=== PATIENT | male | born 1955 | race Caucasian/White ===

== ENCOUNTER 2017-04-08 17:37 | Inpatient (IN) | payer BC ==
[2017-04-08 18:10] LABS: CREATININE 1.13 mg/dL (0.70-1.30)
[2017-04-08] MEDS ORDERED: NS 100 ML IV 100 ML IV ONE (18:23)
--- NOTE | 2017-04-08 19:17 | CT ---
CT abdomen and pelvis with contrast Indication: Left lower quadrant pain. Possible abscess Technique: Helical images through the abdomen and pelvis after IV and oral contrast. Coronal and sag ittal reformats provided. Comparison: None currently available. Findings: Limited images through lower chest shows no acute abnormality. Review of bone windows show s no destructive osseous lesion. Abdomen: The liver, gallbladder, spleen, adrenal glands, pancreas, stomach and small bowel are gloria l without obstruction to the flow of contrast. The appendix is normal. Minimal vascular plaque seen. Kidneys are normal without hydroureteronephrosis. There is diffuse descending colon and sigmoid colon diverticula, with wall thickening and stranding around the distal descending colon on axial image 64 through 71. Focally inflamed diverticula suspec deniz on axial image 68. No free air or pneumatosis seen. Pelvis: Urinary bladder, rectum and prostate gland are normal. Impression: 1. Acute distal descending/proximal sigmoid diverticulitis without free air or drainable fluid colle ction. 2. Vascular calcifications and other incidental findings as above. Reported By:
[2017-04-08] MEDS ORDERED: MORPHINE SULFATE INJ 2 MG IVP PRN (20:12)
[2017-04-08] MEDS ORDERED: ZOFRAN INJ 4 MG VIAL IVP PRN (20:24)
[2017-04-08 20:58] VITALS: BMI 34.5
[2017-04-08] MEDS ORDERED: MORPHINE SULFATE INJ 2 MG IVP ONE (20:59)
[2017-04-08 21:11] LABS: BASOPHILS # (AUTO) 0.1 X10^3/uL (0.0-0.1); BASOPHILS % (AUTO) 1.5 % (0.2-1.0); EOSINOPHILS # (AUTO) 0.1 x10^3/uL (0.0-0.2); EOSINOPHILS % (AUTO) 0.8 % (0.9-2.9); HEMATOCRIT 47.5 % (42.0-54.0); HEMOGLOBIN 16.4 g/dL (13.5-18.0); LYMPHOCYTES # (AUTO) 1.9 X10^3/uL (1.3-2.9); LYMPHOCYTES % (AUTO) 21.5 % (21.0-51.0); MEAN CORPUSCULAR HEMOGLOBIN 29.7 pg (27.0-34.0); MEAN CORPUSCULAR HGB CONC 34.6 g/dL (33.0-35.0); MEAN CORPUSCULAR VOLUME 85.9 fL (80.0-100.0); MEAN PLATELET VOLUME 9.1 fL (7.4-11.0); MONOCYTES # (AUTO) 0.6 x10^3/uL (0.3-0.8); MONOCYTES % (AUTO) 6.5 % (0.0-13.0); NEUTROPHILS # (AUTO) 6.3 x10^3/uL (2.2-4.8); NEUTROPHILS % (AUTO) 69.7 % (42.0-75.0); PLATELET COUNT 165 X10^3/uL (150.0-450.0); RED BLOOD COUNT 5.53 X10^6/uL (4.7-6.0); RED CELL DISTRIBUTION WIDTH 13.6 % (11.6-16.5)
[2017-04-08] MEDS: PROTONIX INJ 40 MG VIAL IVP SCH (21:18)
[2017-04-08] MEDS: CIPRO IV 400 MG PREMIX* 400 MG/200 ML IV.SOLN. IV SCH (21:19)
[2017-04-08] MEDS: FLAGYL IV PREMIX 500 MG BAG 500 MG/100 ML BAG IV SCH (21:19)
[2017-04-08] MEDS: NS 1000 ML 1,000 ML IV PRN (21:19)
[2017-04-08 21:23] LABS: ALANINE AMINOTRANSFERASE 27 Units/L (12-78); ALBUMIN 3.7 g/dL (3.4-5.0); ALKALINE PHOSPHATASE 72 Units/L (46-116); ASPARTATE AMINO TRANSFERASE 14 Units/L (15-37); BLOOD UREA NITROGEN 15 mg/dL (7-18); CALCIUM 9.1 mg/dL (8.5-10.1); CARBON DIOXIDE 30.6 mmol/L (21-32); CHLORIDE 104 mmol/L (98-107); COR NA(FOR HYPERGLY) 141 mmol/L (136-145); GLUCOSE 119 mg/dL (65-99); SODIUM 141 mmol/L (136-145); TOTAL PROTEIN 7.4 g/dL (6.4-8.2); eGFR BLACK RACES > 60 (>60); eGFR NON BLACK RACES > 60 (>60)
[2017-04-08 22:34] LABS: BILIRUBIN,URINE NEGATIVE (NEGATIVE); BLOOD/HEMOGLOBIN,URINE NEGATIVE (NEGATIVE); GLUCOSE, URINE NEGATIVE (NEGATIVE); KETONES,URINE NEGATIVE (NEGATIVE); LEUKOCYTE ESTERASE ,URINE NEGATIVE (NEGATIVE); NITRITES,URINE NEGATIVE (NEGATIVE); PROTEIN,URINE NEGATIVE (NEGATIVE); UROBILINOGEN,URINE NORMAL (NORMAL)
[2017-04-08 22:41] LABS: APPEARANCE,URINE CLEAR (CLEAR); BACTERIA,URINE NEGATIVE /HPF (NEGATIVE); COLOR,URINE YELLOW (YELLOW); RBC,URINE NONE SEEN /HPF (NEGATIVE); SQUAMOUS EPITHELIAL CELL,UR RARE /HPF (NEGATIVE)
[2017-04-09] MEDS: AMBIEN PO PRN ×2 (00:35→22:12)
[2017-04-09 05:02] LABS: BASOPHILS # (AUTO) 0.1 X10^3/uL (0.0-0.1); BASOPHILS % (AUTO) 0.7 % (0.2-1.0); EOSINOPHILS # (AUTO) 0.1 x10^3/uL (0.0-0.2); EOSINOPHILS % (AUTO) 1.5 % (0.9-2.9); HEMATOCRIT 46.3 % (42.0-54.0); HEMOGLOBIN 15.8 g/dL (13.5-18.0); LYMPHOCYTES % (AUTO) 28.6 % (21.0-51.0); MEAN CORPUSCULAR HEMOGLOBIN 29.6 pg (27.0-34.0); MEAN CORPUSCULAR HGB CONC 34.2 g/dL (33.0-35.0); MEAN CORPUSCULAR VOLUME 86.6 fL (80.0-100.0); MEAN PLATELET VOLUME 9.7 fL (7.4-11.0); MONOCYTES # (AUTO) 0.5 x10^3/uL (0.3-0.8); MONOCYTES % (AUTO) 7.7 % (0.0-13.0); NEUTROPHILS # (AUTO) 4.3 x10^3/uL (2.2-4.8); NEUTROPHILS % (AUTO) 61.5 % (42.0-75.0); PLATELET COUNT 155 X10^3/uL (150.0-450.0); RED BLOOD COUNT 5.35 X10^6/uL (4.7-6.0); RED CELL DISTRIBUTION WIDTH 13.5 % (11.6-16.5)
[2017-04-09 05:18] LABS: ALANINE AMINOTRANSFERASE 24 Units/L (12-78); ALBUMIN 3.4 g/dL (3.4-5.0); ALKALINE PHOSPHATASE 59 Units/L (46-116); ASPARTATE AMINO TRANSFERASE 15 Units/L (15-37); BLOOD UREA NITROGEN 12 mg/dL (7-18); CALCIUM 8.3 mg/dL (8.5-10.1); CARBON DIOXIDE 27.8 mmol/L (21-32); CHLORIDE 107 mmol/L (98-107); COR NA(FOR HYPERGLY) 143 mmol/L (136-145); GLUCOSE 118 mg/dL (65-99); SODIUM 143 mmol/L (136-145); eGFR BLACK RACES > 60 (>60); eGFR NON BLACK RACES > 60 (>60)
[2017-04-09] MEDS: NS 1000 ML 1,000 ML IV PRN ×2 (05:24→22:13)
[2017-04-09] MEDS: FLAGYL IV PREMIX 500 MG BAG 500 MG/100 ML BAG IV SCH ×3 (05:24→22:13)
[2017-04-09] MEDS: PROTONIX INJ 40 MG VIAL IVP SCH (08:37)
[2017-04-09] MEDS: CIPRO IV 400 MG PREMIX* 400 MG/200 ML IV.SOLN. IV SCH ×2 (08:38→20:59)
[2017-04-09] MEDS ORDERED: PATIENT'S HOME MEDICATION (Rosuvastatin Calcium [Rosuvastatin Calcium] 20 MG) PO SCH (09:45)
[2017-04-09] MEDS ORDERED: GLUCOPHAGE PO SCH (10:00)
[2017-04-09] MEDS: MIRALAX POWDER (1 DOSE 17GM) PO SCH (10:49)
[2017-04-09] MEDS: ASPIRIN PO SCH (10:49)
--- NOTE | 2017-04-09 11:02 | DR.H&P ---
H&P - History & Physical for Day of: H&P Date: 04/08/17 - Chief Complaint Chief Complaint: Abdominal Pain - Allergies Allergies/Adverse Reactions: Allergies Allergy/AdvReac Type Severity Reaction Status Date / Time MS No Known Drug Allergy Allergy Verified 04/08/17 20:11 - History of Present Illness History of Present Illness: Patient is a 62yo male who presented to the hospital as a direct admit with severe abdominal pain, nausea. Patient had an outpatient CT of abdomen and pelvis that showed acute distal descending/ Proximal sigmoid diverticulitis without free air or drainable fluid. Vascular calcifications. Patient admitted with diagnosis of acute diverticulitis. Started on NS@75, Cipro 400mg IV Q12hr, Flagyl 500mg IV Q8hr, Morphine 2mg IV Q4hr PRN, Zofran 4mg Iv Q6hr PRN and ambien 5mg at bedtime PRN. On arrival vital signs 98.4, 90, 20, 99%, 162/64. Physical exam reveals diffuse abdominal tenderness. Labs on arrival are within normal limits with the exception of Eos% 0.8, Baso% 1.5, Neut# 6.3, glucose 119, AST 14, Albumin/Globulin Ratio 1.0. Patient has a history of Coronary artery disease, hyperlipidemia, constipation, GERD, Asthma, Diabetes Mellitus type 2, and Arthritis. We will continue to hydrate patient and given IV antibiotics as well as pain medication to help. - Past Medical History Past Medical History: Arthritis, Asthma, Coronary Artery Disease, Diabetes, Dyslipidemia, GERD - Past Surgical History Surgical History: Carotid Endarterectomy - Family History Family Medical History: Coronary Artery Disease, Hypertension - Social History Does patient currently use any type of tobacco product: No Have you used tobacco products in the last 12 months: No Type of Tobacco Use: None Alcohol Use: None Drug Use: None - Medications Home Medications: Aspirin [ASPIRIN 325 MG *] 325 mg PO DAILY 04/08/17 [History Confirmed 04/08/17] Metformin HCl [Metformin HCl] 500 mg PO DAILY 04/08/17 [History Confirmed ] Pantoprazole Sodium [Protonix] 40 mg PO DAILY 04/08/17 [History Confirmed ] Polyethylene Glycol Pwd Ud [MIRALAX POWDER (17 GM DOSE) *] 17 gm PO DAILY [History Confirmed 04/08/17] Rosuvastatin Calcium [Rosuvastatin Calcium] 20 mg PO DAILY 04/08/17 [History Confirmed 04/08/17] Coenzyme Q10 (Ubidecarenone) [Co Q-10] 200 mg PO DAILY 04/09/17 [History Confirmed 04/09/17] Multiple Vitamins W/ Minerals [Centrum Silver] 1 tab PO DAILY 04/09/17 [History Confirmed 04/09/17] Whitman-3 Fatty Acids [Fish Oil 1200 mg] 1 cap PO DAILY 04/09/17 [History Confirmed 04/09/17] - Review of Systems Constitutional: No Symptoms Reported Eyes: No Symptoms Reported ENT: No Symptoms Reported Respiratory: No Symptoms Reported Cardiovascular: No Symptoms Reported Gastrointestinal: Nausea, Abdominal Pain Genitourinary: No Symptoms Reported Musculoskeletal: No Symptoms Reported Skin: No Symptoms Reported Neurological: No Symptoms Reported - Physical Exam Vital Signs: 98.4, 90, 20, 99%, 162/64 Oriented: Normal Eyes: Normal Ear: Normal Nose: Normal Throat: Normal Respiratory: Clear Throughout Cardiovascular: Normal : Normal Auscultation: Bowel Sounds: Normal Palpation: Normal Tenderness: Diffuse Skin: Normal Musculoskeletal: Normal Psychiatric: Normal Mood Description: Calm, Appropriate Affect: Normal Speech Pattern: Clear, Appropriate - Assessment/Plan (1) Diverticulitis Qualifiers: Diverticulitis site: D Diverticulitis bleeding: D Diverticulitis complication: D Status: Acute Plan: Cipro 400mg IV Q12hr, Flagyl 500mg IV Q8hr (2) Abdominal pain Qualifiers: Abdominal location: A Status: Acute Plan: Morphine 2mg IV Q4hr PRN (3) Nausea Status: Acute Plan: Zofran 4mg Iv Q6hr PRN
--- NOTE | 2017-04-09 11:12 | PCM.PROG ---
Progress Note - Progress Note for Day of Date: 04/09/17 - Subjective Subjective: Patient is a 62yo male who was admitted with diverticulitis. He states he is feeling better this am but is still having some abdominal pain. We are going to keep him another day so he can continue to receive IV Antibiotics and Fluids and morphine for pain control. Physical exam reveals abdominal distention and diffuse abdominal tenderness. Vital signs this am 97.5, 71, 19, 96%, 130/61. Labs are within normal limits with the exception of glucose 118, Calcium 8.3, and albumin/globulin ratio of 0.9. We will follow up with patient in the am with repeat labs. We are going to resumed his home medications including Multivitamin daily, fish oil 1200mg daily, coenzyme Q10 200mg daily, rosuvastatin 20mg daily, metformin 500mg daily and aspirin 325mg daily. We will hold his protonix as he is receiving it IV. - Past Medical Family Social History Past Med/Fam/Surg Hx: No changes since H&P Allergies: Allergies MS No Known Drug Allergy Allergy (Verified 04/08/17 20:11) - Review of Systems ROS: No change since H&P - Vital Signs and I&O's Vital Signs: 97.5, 71, 19, 96%, 130/61 Intake and Output: Intake & Output 04/06/17 04/07/17 04/08/17 04/09/17 11:59 11:59 11:59 11:59 Intake Total 826 Output Total 250 Balance 576 - Physical Exam Oriented: Normal Eyes: Normal Ear: Normal Nose: Normal Throat: Normal Respiratory: Normal Cardiovascular: Normal : Normal Auscultation: Bowel Sounds: Normal Palpation: Normal Tenderness: Diffuse Skin: Normal Musculoskeletal: Normal Psychiatric: Normal Mood Description: Calm, Appropriate Affect: Normal Speech Pattern: Clear, Appropriate - Laboratory and Diagnostics Result Diagrams: 04/09/17 03:50 04/09/17 03:50 Labs: Laboratory WBC 7.0 X10^3/uL (3.6-10.0) 04/09/17 03:50 RBC 5.35 X10^6/uL (4.7-6.0) 04/09/17 03:50 Hgb 15.8 g/dL (13.5-18.0) 04/09/17 03:50 Hct 46.3 % (42.0-54.0) 04/09/17 03:50 MCV 86.6 fL (80.0-100.0) 04/09/17 03:50 MCH 29.6 pg (27.0-34.0) 04/09/17 03:50 MCHC 34.2 g/dL (33.0-35.0) 04/09/17 03:50 RDW 13.5 % (11.6-16.5) 04/09/17 03:50 Plt Count 155 X10^3/uL (150.0-450.0) 04/09/17 03:50 MPV 9.7 fL (7.4-11.0) 04/09/17 03:50 Neut % 61.5 % (42.0-75.0) 04/09/17 03:50 Lymph % 28.6 % (21.0-51.0) 04/09/17 03:50 Mcdowell % 7.7 % (0.0-13.0) 04/09/17 03:50 Eos % 1.5 % (0.9-2.9) 04/09/17 03:50 Baso % 0.7 % (0.2-1.0) 04/09/17 03:50 Neut # 4.3 x10^3/uL (2.2-4.8) 04/09/17 03:50 Lymph # 2.0 X10^3/uL (1.3-2.9) 04/09/17 03:50 Mcdowell # 0.5 x10^3/uL (0.3-0.8) 04/09/17 03:50 Eos # 0.1 x10^3/uL (0.0-0.2) 04/09/17 03:50 Baso # 0.1 X10^3/uL (0.0-0.1) 04/09/17 03:50 Absolute Nucleated RBC 0.1 /100WBC 04/09/17 03:50 Sodium 143 mmol/L (136-145) 04/09/17 03:50 Corrected Sodium 143 mmol/L (136-145) 04/09/17 03:50 Potassium 3.5 mmol/L (3.5-5.1) 04/09/17 03:50 Chloride 107 mmol/L (98-107) 04/09/17 03:50 Carbon Dioxide 27.8 mmol/L (21-32) 04/09/17 03:50 BUN 12 mg/dL (7-18) 04/09/17 03:50 Creatinine 1.00 mg/dL (0.70-1.30) 04/09/17 03:50 Est GFR (MDRD) Af Amer > 60 (>60) 04/09/17 03:50 Est GFR (MDRD) Non-Af > 60 (>60) 04/09/17 03:50 Glucose 118 mg/dL (65-99) H 04/09/17 03:50 Calcium 8.3 mg/dL (8.5-10.1) L 04/09/17 03:50 Corrected Calcium TNP 04/09/17 03:50 Total Bilirubin 0.90 mg/dL (0.2-1.0) 04/09/17 03:50 AST 15 Units/L (15-37) 04/09/17 03:50 ALT 24 Units/L (12-78) 04/09/17 03:50 Alkaline Phosphatase 59 Units/L (46-116) 04/09/17 03:50 Total Protein 7.0 g/dL (6.4-8.2) 04/09/17 03:50 Albumin 3.4 g/dL (3.4-5.0) 04/09/17 03:50 Globulin 3.6 g/dL (2.5-4.5) 04/09/17 03:50 Albumin/Globulin Ratio 0.9 Ratio (1.1-2.1) L 04/09/17 03:50 Specimen Type Clean catch urine 04/08/17 22:28 Urine Color Yellow (YELLOW) 04/08/17 22:28 Urine Appearance Clear (CLEAR) 04/08/17 22:28 Urine pH 6.0 (5.0 - 8.0) 04/08/17 22:28 Ur Specific Decker 1.010 (1.000-1.030) 04/08/17 22:28 Urine Protein Negative (NEGATIVE) 04/08/17 22:28 Urine Glucose (UA) Negative (NEGATIVE) 04/08/17 22:28 Urine Ketones Negative (NEGATIVE) 04/08/17 22:28 Urine Occult Blood Negative (NEGATIVE) 04/08/17 22:28 Urine Nitrite Negative (NEGATIVE) 04/08/17 22:28 Urine Bilirubin Negative (NEGATIVE) 04/08/17 22:28 Urine Urobilinogen Normal (NORMAL) 04/08/17 22:28 Ur Leukocyte Esterase Negative (NEGATIVE) 04/08/17 22:28 Urine RBC None seen /HPF (NEGATIVE) 04/08/17 22:28 Urine WBC None seen /HPF (NEGATIVE) 04/08/17 22:28 Ur Squamous Epith Cells Rare /HPF (NEGATIVE) 04/08/17 22:28 Urine Bacteria Negative /HPF (NEGATIVE) 04/08/17 22:28 Ur Culture Indicated? No/not indicated 04/08/17 22:28 - Plan (1) Diverticulitis Status: Acute Qualifiers: Diverticulitis site: D Diverticulitis bleeding: D Diverticulitis complication: D Plan: Cipro 400mg IV Q12hr, Flagyl 500mg IV Q8hr (2) Abdominal pain Status: Acute Qualifiers: Abdominal location: A Plan: Morphine 2mg IV Q4hr PRN, Protonix 40mg IV DAIly (3) Nausea Status: Acute Plan: Zofran 4mg Iv Q6hr PRN (4) Hyperlipidemia Status: Acute Qualifiers: Hyperlipidemia type: H Plan: continue rosuvastatin 20mg daily (5) Diabetes mellitus, type 2 Status: Acute Qualifiers: Diabetes mellitus complication status: D Diabetes mellitus complication detail: D Diabetic retinopathy severity: D Proliferative retinopathy type: P Diabetes mellitus macular edema: D Diabetes mellitus ferry terminal agent insulin use : D Laterality: L Chronic kidney disease stage: C Plan: continue metformin 500mg daily
[2017-04-09] MEDS ORDERED: OMEGA PO SCH (11:15)
[2017-04-09] MEDS ORDERED: COENZYME Q10 200 MG PO SCH (11:15)
[2017-04-09] MEDS ORDERED: FATTY ACIDS PO SCH (11:15)
[2017-04-09] MEDS ORDERED: PATIENT'S HOME MEDICATION (Multiple Vitamins W/ Minerals [Centrum Silver] 1 TAB) PO SCH (11:15)
[2017-04-09] MEDS ORDERED: CRESTOR TAB 10 MG PO SCH (21:00)
[2017-04-10] MEDS: FLAGYL IV PREMIX 500 MG BAG 500 MG/100 ML BAG IV SCH (05:27)
[2017-04-10 05:35] LABS: EOSINOPHILS # (AUTO) 0.1 x10^3/uL (0.0-0.2); EOSINOPHILS % (AUTO) 1.8 % (0.9-2.9); HEMATOCRIT 44.7 % (42.0-54.0); HEMOGLOBIN 15.6 g/dL (13.5-18.0); LYMPHOCYTES # (AUTO) 1.6 X10^3/uL (1.3-2.9); LYMPHOCYTES % (AUTO) 31.6 % (21.0-51.0); MEAN CORPUSCULAR HEMOGLOBIN 30.2 pg (27.0-34.0); MEAN CORPUSCULAR HGB CONC 34.9 g/dL (33.0-35.0); MEAN CORPUSCULAR VOLUME 86.7 fL (80.0-100.0); MEAN PLATELET VOLUME 9.4 fL (7.4-11.0); MONOCYTES # (AUTO) 0.4 x10^3/uL (0.3-0.8); MONOCYTES % (AUTO) 7.5 % (0.0-13.0); NEUTROPHILS # (AUTO) 2.9 x10^3/uL (2.2-4.8); NEUTROPHILS % (AUTO) 58.1 % (42.0-75.0); PLATELET COUNT 147 X10^3/uL (150.0-450.0); RED BLOOD COUNT 5.16 X10^6/uL (4.7-6.0); RED CELL DISTRIBUTION WIDTH 13.3 % (11.6-16.5)
[2017-04-10 05:46] LABS: ALANINE AMINOTRANSFERASE 24 Units/L (12-78); ALBUMIN 3.1 g/dL (3.4-5.0); ALKALINE PHOSPHATASE 49 Units/L (46-116); ASPARTATE AMINO TRANSFERASE 16 Units/L (15-37); BLOOD UREA NITROGEN 8 mg/dL (7-18); CALCIUM 8.2 mg/dL (8.5-10.1); CARBON DIOXIDE 25.8 mmol/L (21-32); CHLORIDE 110 mmol/L (98-107); COR CA(FOR HYPOALB) 8.9 mg/dL (8.5-10.1); COR NA(FOR HYPERGLY) 144 mmol/L (136-145); CREATININE 0.89 mg/dL (0.70-1.30); GLUCOSE 115 mg/dL (65-99); SODIUM 144 mmol/L (136-145); TOTAL PROTEIN 6.5 g/dL (6.4-8.2); eGFR BLACK RACES > 60 (>60); eGFR NON BLACK RACES > 60 (>60)
[2017-04-10] MEDS ORDERED: TAB-A-VITE PO SCH (09:00)
[2017-04-10] MEDS ORDERED: LOVAZA PO SCH (09:00)
[2017-04-10 09:24] VITALS: BP 163/77
[2017-04-10] MEDS: PROTONIX INJ 40 MG VIAL IVP SCH (09:24)
[2017-04-10] MEDS: CIPRO IV 400 MG PREMIX* 400 MG/200 ML IV.SOLN. IV SCH (09:24)
[2017-04-10] MEDS: ASPIRIN PO SCH (09:24)
[2017-04-10] MEDS: MIRALAX POWDER (1 DOSE 17GM) PO SCH (09:24)
--- NOTE | 2017-04-10 11:11 | DR.CARTERD ---
- Discharge Summary for: Discharge Summary for Date of:: 04/10/17 - Admission Date Date of Admission: 04/08/17 - Admission Diagnoses Admission Diagnosis: acute diverticulitis. Coronary artery disease. hyperlipidemia. constipation. GERD. Diabetes Mellitus type 2 - Discharge Date Discharge Date: 04/10/17 - Discharge Diagnoses Discharge Diagnosis: acute diverticulitis Coronary artery disease hyperlipidemia constipation GERD Diabetes Mellitus type 2 - Hospital Course Hospital Course: Patient is a 62yo male who presented to the hospital as a direct admit with severe abdominal pain, nausea. Patient had an outpatient CT of abdomen and pelvis that showed acute distal descending/Proximal sigmoid diverticulitis without free air or drainable fluid. Vascular calcifications. Patient admitted with diagnosis of acute diverticulitis. Started on NS@75, Cipro 400mg IV Q12hr, Flagyl 500mg IV Q8hr, Morphine 2mg IV Q4hr PRN, Zofran 4mg Iv Q6hr PRN and ambien 5mg at bedtime PRN. On arrival vital signs 98.4, 90, 20, 99%, 162/64. Physical exam reveals diffuse abdominal tenderness. Labs on arrival are within normal limits with the exception of Eos% 0.8, Baso% 1.5, Neut# 6.3, glucose 119 , AST 14, Albumin/Globulin Ratio 1.0. Patient has a history of Coronary artery disease, hyperlipidemia, constipation, GERD, Asthma, Diabetes Mellitus type 2, and Arthritis. We continued to hydrate patient and given IV antibiotics as well as pain medication to help. After a couple days of IV fluids and IV antibiotics patient began to feel better. Vital signs this am 97.8, 69, 20, 99%, 163/77. Labs are within normal limits with the exception of Plt count 147, Chloride 110 , Glucose 115, Calcium 8.2, Albumin 3.1, Albumin/globulin Ratio 0.9. We are going to discharge patient home in stable condition. Patient is to follow up in 1 week and he is to continue his home medications with the addition of Cipro 750mg PO BID for 14 days, Flagyl 500mg PO BID for 14 days, Colace 100mg po BID, Zofran 4mg po q6hr prn, and has been instructed to drink 4 16oz glasses of water daily. Labs: Labs are within normal limits with the exception of Plt count 147, Chloride 110 , Glucose 115, Calcium 8.2, Albumin 3.1, Albumin/globulin Ratio 0.9 - Discharge Medications Discharge Medications: Aspirin [ASPIRIN 325 MG *] 325 mg PO DAILY 04/08/17 [History] Metformin HCl 500 mg PO DAILY 04/08/17 [History] Pantoprazole Sodium [Protonix] 40 mg PO DAILY 04/08/17 [History] Polyethylene Glycol Pwd Ud [MIRALAX POWDER (17 GM DOSE) *] 17 gm PO DAILY [History] Rosuvastatin Calcium 20 mg PO DAILY 04/08/17 [History] Coenzyme Q10 (Ubidecarenone) [Co Q-10] 200 mg PO DAILY 04/09/17 [History] Multiple Vitamins W/ Minerals [Centrum Silver] 1 tab PO DAILY 04/09/17 [History] Amity-3 Fatty Acids/Fish Oil [Fish Oil 1,200 mg Softgel] 1 cap PO DAILY [History] Ciprofloxacin HCl [Cipro] 750 mg PO BID #28 tablet 04/10/17 [Rx] Docusate Sodium [COLACE CAP 100 MG *] 100 mg PO BID PRN #60 cap 04/10/17 [Rx] Metronidazole [FLAGYL 500 MG *] 500 mg PO BID #28 tab 04/10/17 [Rx] Ondansetron HCl [ZOFRAN TAB 4 MG *] 4 mg PO Q8H PRN #30 tab 04/10/17 [Rx] - Discharge Disposition Discharge Disposition: Home
== END 2017-04-10 10:00 | disposition home or self-care (01) | DRG 392 ==
LOC: RAD 17:37 → MED/SURG 20:08
PROVIDERS: ADMIT Internal Medicine; ATTEND Internal Medicine
DX: K57.32 Diverticulitis of large intestine without perforation or abscess without bleeding (principal); R10.84 Generalized abdominal pain; R11.0 Nausea; I25.10 Atherosclerotic heart disease of native coronary artery without angina pectoris; E78.2 Mixed hyperlipidemia; K21.9 Gastro-esophageal reflux disease without esophagitis; E11.65 Type 2 diabetes mellitus with hyperglycemia; M13.89 Other specified arthritis, multiple sites; K59.09 Other constipation
CPT/HCPCS: 36415; 74177; 80053; 81001; 82565; 84520; 85025; A4222; C9113; S0030; J0744; J2270

== ENCOUNTER 2020-05-30 14:31 | Inpatient (IN) ==
[2020-05-30 18:00] LABS: BASOPHILS % (AUTO) 0.7 % (0.2-1.0); HEMATOCRIT 46.3 % (42.0-54.0); LYMPHOCYTES # (AUTO) 0.9 X10^3/uL (1.3-2.9); LYMPHOCYTES % (AUTO) 25.6 % (21.0-51.0); MEAN CORPUSCULAR HGB CONC 34.5 g/dL (33.0-35.0); MEAN CORPUSCULAR VOLUME 86.9 fL (80.0-100.0); MEAN PLATELET VOLUME 8.7 fL (7.4-11.0); MONOCYTES # (AUTO) 0.2 x10^3/uL (0.3-0.8); MONOCYTES % (AUTO) 6.2 % (0.0-13.0); NEUTROPHILS # (AUTO) 2.5 x10^3/uL (2.2-4.8); NEUTROPHILS % (AUTO) 67.5 % (42.0-75.0); PLATELET COUNT 103 X10^3/uL (150.0-450.0); RED BLOOD COUNT 5.33 X10^6/uL (4.7-6.0); RED CELL DISTRIBUTION WIDTH 13.8 % (11.6-16.5); WHITE BLOOD COUNT 3.7 X10^3/uL (3.6-10.0)
[2020-05-30 18:03] LABS: ABG BASE EXCESS 0.6 mmol/L (-2.0-2.0); ABG HCO3 24.3 mmol/L (22-26)
--- NOTE | 2020-05-30 18:08 | RAD ---
CHEST, 1 VIEWHISTORY: FEVER. SOB, SYNCOPE, COVIDStudy: Single view of the chest.Comparison:NoneFindings:The cardiomediastinal silhouette is normal.No focal consolidations, pleural effusions or pneumothorax. Osseous structures demonstrate no acute abnormality.IMPRESSION:1. No acute cardiopulmonary process.Electronically signed by: NICK SMITH (May 30, 2020 18:06:44)
[2020-05-30 18:11] LABS: ALANINE AMINOTRANSFERASE 50 Units/L (12-78); ALBUMIN 3.4 g/dL (3.4-5.0); ALKALINE PHOSPHATASE 71 Units/L (46-116); ASPARTATE AMINO TRANSFERASE 49 Units/L (15-37); BLOOD UREA NITROGEN 13 mg/dL (7-18); CALCIUM 8.4 mg/dL (8.5-10.1); CHLORIDE 100 mmol/L (98-107); COR NA(FOR HYPERGLY) 137 mmol/L (136-145); CREATININE 1.14 mg/dL (0.70-1.30); SODIUM 135 mmol/L (136-145); TOTAL PROTEIN 7.4 g/dL (6.4-8.2); eGFR NON BLACK RACES > 60 (>60)
[2020-05-30 18:29] VITALS: BMI 32.8
[2020-05-30] MEDS ORDERED: REMDESIVIR (INVESTIGATIONAL DRUG GS-5734) 200 MG in NS 250 ML IV 250 ML IV SCH (19:00)
[2020-05-30] MEDS ORDERED: NS 1/2 1000 ML IV 1,000 ML IV ONE (20:03)
[2020-05-30] MEDS: VSL#3 PO SCH (20:32)
[2020-05-30] MEDS: TUSSIONEX PENNKINETIC SUSP PO SCH (20:33)
[2020-05-30] MEDS: LEVAQUIN PREMIX IV 750 MG 750 MG/150 ML BAG IV SCH (20:33)
[2020-05-30] MEDS: ROBITUSSIN DM PO SCH ×2 (20:33)
[2020-05-30] MEDS: TYLENOL 325 MG TAB PO PRN (20:35)
[2020-05-30] MEDS: NS 1/2 1000 ML IV 1,000 ML IV SCH (20:39)
[2020-05-30] MEDS ORDERED: SOLU-Medrol 40 MG VIAL ONE (20:41)
[2020-05-30] MEDS: DUONEB 0.5 MG/3 MG (3 mL) NEB PRN (20:45)
[2020-05-30] MEDS: PULMICORT NEB TX 0.5 MG NEB SCH (20:45)
[2020-05-30] MEDS: MUCOMYST (RESPIRATORY USE ONLY) NEB SCH (20:45)
[2020-05-30] MEDS ORDERED: PULMICORT NEB TX 0.5 MG NEB SCH (21:00)
[2020-05-30] MEDS ORDERED: DUONEB 0.5 MG/3 MG (3 mL) NEB SCH (21:00)
[2020-05-30] MEDS ORDERED: HumuLIN R ONE (22:06)
[2020-05-30] MEDS: SOLU-Medrol 40 MG VIAL IVP SCH (22:13)
[2020-05-30] MEDS: HumuLIN R SUBCUT PRN (22:13)
[2020-05-31] MEDS: RESTORIL CAP 15 MG PO PRN ×2 (01:00→23:17)
[2020-05-31 04:20] LABS: ABG ALLEN TEST POS; ABG BASE EXCESS 1.3 mmol/L (-2.0-2.0); ABG HCO3 25.9 mmol/L (22-26)
[2020-05-31] MEDS: DUONEB 0.5 MG/3 MG (3 mL) NEB PRN ×4 (04:21→20:15)
[2020-05-31 06:12] LABS: BASOPHILS % (AUTO) 0.6 % (0.2-1.0); HEMATOCRIT 47.6 % (42.0-54.0); HEMOGLOBIN 16.2 g/dL (13.5-18.0); LYMPHOCYTES # (AUTO) 0.5 X10^3/uL (1.3-2.9); LYMPHOCYTES % (AUTO) 23.1 % (21.0-51.0); MEAN CORPUSCULAR HEMOGLOBIN 29.9 pg (27.0-34.0); MEAN CORPUSCULAR HGB CONC 34.1 g/dL (33.0-35.0); MEAN CORPUSCULAR VOLUME 87.9 fL (80.0-100.0); MEAN PLATELET VOLUME 8.7 fL (7.4-11.0); MONOCYTES # (AUTO) 0.1 x10^3/uL (0.3-0.8); MONOCYTES % (AUTO) 4.4 % (0.0-13.0); NEUTROPHILS # (AUTO) 1.4 x10^3/uL (2.2-4.8); NEUTROPHILS % (AUTO) 71.9 % (42.0-75.0); PLATELET COUNT 97 X10^3/uL (150.0-450.0); RED BLOOD COUNT 5.42 X10^6/uL (4.7-6.0); RED CELL DISTRIBUTION WIDTH 13.8 % (11.6-16.5)
[2020-05-31] MEDS: SOLU-Medrol 40 MG VIAL IVP SCH ×3 (06:40→21:27)
--- NOTE | 2020-05-31 06:41 | RAD ---
HISTORYSOBSTUDYCHEST, 1 [id number]/12/2020TECHNIQUEAP view of the chestFINDINGSCardiac and mediastinal contours within normal limits. No consolidation, segmental collapse, pleural effusion or pneumothorax is identified. Patient is rotated.IMPRESSIONNo acute pulmonary process identified. Subtle hazy opacity the right lateral lung favored to due to patient rotation and overlying soft tissue.Electronically signed by: Fuentes Souza (May 31, 2020 06:39:34)
[2020-05-31] MEDS: HumuLIN R SUBCUT PRN ×4 (06:45→21:31)
[2020-05-31 07:07] LABS: ALANINE AMINOTRANSFERASE 52 Units/L (12-78); ALBUMIN 3.2 g/dL (3.4-5.0); ALKALINE PHOSPHATASE 72 Units/L (46-116); ASPARTATE AMINO TRANSFERASE 54 Units/L (15-37); BLOOD UREA NITROGEN 13 mg/dL (7-18); CALCIUM 8.7 mg/dL (8.5-10.1); CARBON DIOXIDE 23.3 mmol/L (21-32); CHLORIDE 101 mmol/L (98-107); COR CA(FOR HYPOALB) 9.3 mg/dL (8.5-10.1); COR NA(FOR HYPERGLY) 142 mmol/L (136-145); CREATININE 1.21 mg/dL (0.70-1.30); SODIUM 137 mmol/L (136-145); TOTAL PROTEIN 7.4 g/dL (6.4-8.2); eGFR NON BLACK RACES > 60 (>60)
[2020-05-31 07:55] LABS: BAND NEUTROPHILS % 2 % (0-10)
[2020-05-31 07:56] LABS: PLATELET MORPHOLOGY COMMENT NORMAL (NORMAL)
[2020-05-31] MEDS: PULMICORT NEB TX 0.5 MG NEB SCH ×2 (08:40→20:15)
[2020-05-31] MEDS: MUCOMYST (RESPIRATORY USE ONLY) NEB SCH ×2 (08:40→20:15)
[2020-05-31] MEDS: ROBITUSSIN DM PO SCH ×4 (08:43→21:27)
[2020-05-31] MEDS: TUSSIONEX PENNKINETIC SUSP PO SCH ×2 (08:43→21:27)
[2020-05-31] MEDS: VSL#3 PO SCH (08:44)
[2020-05-31] MEDS ORDERED: MIRALAX POWDER (1 DOSE 17 G) PO PRN (09:34)
[2020-05-31] MEDS ORDERED: COENZYME Q10 200 MG PO SCH (09:45)
[2020-05-31] MEDS: LOVAZA PO SCH (13:00)
[2020-05-31] MEDS: GLUCOPHAGE PO SCH ×2 (13:00→21:28)
[2020-05-31] MEDS: TAB-A-VITE PO SCH (13:00)
[2020-05-31] MEDS: ASPIRIN PO SCH (13:00)
[2020-05-31] MEDS: PROTONIX TAB 40 MG PO SCH (13:00)
[2020-05-31] MEDS: LOVENOX INJ 40 MG SYR SC SCH (13:00)
[2020-05-31] MEDS ORDERED: GLUCOPHAGE ONE ×2 (13:08→21:21)
--- NOTE | 2020-05-31 13:23 | DR.UPDATE ---
H&P Update History and Physical Update: History and Physical reviewed and patient examined. Changes noted: Yes with the following: WAS SEEN IN THE OFFICE DUE TO PERSISTENT COUGH, SOB, FEVER, AND WEAKNESS. SYMPTOMS STARTED APPROXIMATELY 7 DAYS PRIOR. HE WAS EVALUATED IN THE ER ON 05/26/20. HE WAS SWABBED FOR COVID-19 AT THAT TIME AND WAS NOTIFIED TWO DAYS LATER THAT HE WAS POSITIVE. HE HAS BEEN TAKING AUGMENTIN 875/125MG PO BID X 4 DAYS AT HOME WITHOUT IMPROVEMENT IN SYMPTOMS. HE REPORTS THAT SHORTNESS OF BREATH IS WORSE ON EXERTION. ON ARRIVAL TO THE ER, VITALS WERE 100.3-95-20-97%-174/77. LABS WERE OBTAINED. ABNORMAL LAB VALUES INCLUDE THE FOLLOWING: PLT COUNT 118, SODIUM 135, GLUCOSE 190, CALCIUM 8.4, FERRITIN 2042, AST 49, CRP 131. AN ABG WAS OBTAINED AND REVEALED: PH 7.450, PC02 35.0, P02 71.0, HC03 24.3, 02 SAT 95.0, FI02 21.0. BLOOD CULTURES WERE SET UP. A CHEST XRAY WAS OBTAINED AND REVEALED: The c ardiomediastinal silhouette is normal.No focal consolidations, pleural effusions or pneumothorax. Osseous structures demonstrate no acute abnormality. AN EKG WAS OBTAINED AND REVEALED: SINUS RHYTHM WITH HR 74. HE WAS STARTED ON NS AT 75 ML/HR, LEVAQUIN 750MG IV DAILY, REMDESIVIR 200MG IV X 1 DOSE, THEN 100MG IV DAILY, DUONEBS QID PRN, PULMICORT BID, MUCOMYST NEB TX BID, TUSSIONEX 5ML PO Q12H, ROBITUSSIN 10ML PO QID, SOLU-MEDROL 80MG IV Q8H, LOVENOX 40MG SC DAILY, HUMULIN R SLIDING SCALE, OTBS ACHS, AND HOME MEDICATIONS WERE RESUMED. OTHERWISE, WE PLAN TO FOLLOW UP WITH AM LABS, CHEST XRAY, AND ABG AND CONTINUE TO MONITOR. Prescription drug monitoring program results: PDMP reviewed and no concerns identified H&P Reviewed: Yes Patient was examined?: Yes
[2020-05-31] MEDS: SNACK - Diabetic Appropriate PO SCH (20:00)
[2020-05-31] MEDS: LEVAQUIN PREMIX IV 750 MG 750 MG/150 ML BAG IV SCH (21:00)
[2020-05-31] MEDS: CRESTOR TAB 10 MG PO SCH (21:27)
[2020-05-31] MEDS: REMDESIVIR (INVESTIGATIONAL DRUG GS-5734) 100 MG in NS 250 ML IV 250 ML IV SCH (22:00)
[2020-05-31] MEDS: NS 1/2 1000 ML IV 1,000 ML IV SCH (22:15)
[2020-06-01] MEDS ORDERED: NS 1/2 1000 ML IV 1,000 ML IV ONE ×2 (00:36→08:27)
[2020-06-01 05:48] LABS: BASOPHILS % (AUTO) 0.1 % (0.2-1.0); HEMATOCRIT 41.6 % (42.0-54.0); HEMOGLOBIN 14.3 g/dL (13.5-18.0); LYMPHOCYTES # (AUTO) 0.4 X10^3/uL (1.3-2.9); LYMPHOCYTES % (AUTO) 7.1 % (21.0-51.0); MEAN CORPUSCULAR HEMOGLOBIN 30.1 pg (27.0-34.0); MEAN CORPUSCULAR HGB CONC 34.3 g/dL (33.0-35.0); MEAN CORPUSCULAR VOLUME 87.8 fL (80.0-100.0); MONOCYTES # (AUTO) 0.3 x10^3/uL (0.3-0.8); MONOCYTES % (AUTO) 4.9 % (0.0-13.0); NEUTROPHILS # (AUTO) 5.4 x10^3/uL (2.2-4.8); NEUTROPHILS % (AUTO) 87.9 % (42.0-75.0); PLATELET COUNT 124 X10^3/uL (150.0-450.0); RED BLOOD COUNT 4.74 X10^6/uL (4.7-6.0); RED CELL DISTRIBUTION WIDTH 13.8 % (11.6-16.5); WHITE BLOOD COUNT 6.2 X10^3/uL (3.6-10.0)
[2020-06-01] MEDS: SOLU-Medrol 40 MG VIAL IVP SCH ×3 (05:48→21:05)
[2020-06-01 05:50] LABS: ALANINE AMINOTRANSFERASE 48 Units/L (12-78); ALBUMIN 2.8 g/dL (3.4-5.0); ALKALINE PHOSPHATASE 66 Units/L (46-116); ASPARTATE AMINO TRANSFERASE 41 Units/L (15-37); BLOOD UREA NITROGEN 20 mg/dL (7-18); CALCIUM 8.5 mg/dL (8.5-10.1); CARBON DIOXIDE 26.4 mmol/L (21-32); CHLORIDE 105 mmol/L (98-107); COR CA(FOR HYPOALB) 9.5 mg/dL (8.5-10.1); COR NA(FOR HYPERGLY) 145 mmol/L (136-145); CREATININE 1.13 mg/dL (0.70-1.30); SODIUM 140 mmol/L (136-145); TOTAL PROTEIN 6.4 g/dL (6.4-8.2); eGFR NON BLACK RACES > 60 (>60)
[2020-06-01] MEDS: HumuLIN R SUBCUT PRN ×3 (06:15→21:00)
--- NOTE | 2020-06-01 06:21 | RAD ---
HISTORYSOBSTUDYCHEST, 1 [id number]/13/2020TECHNIQUEAP view of the chestFINDINGSCardiac and mediastinal contours are stable. Mild worsening in patchy bibasilar opacities. No definite pleural effusion or pneumothorax.IMPRESSIONMild worsening in patchy bibasilar opacities that could represent developing pneumonia.Electronically signed by: Fuentes Souza (Jun 01, 2020 06:20:53)
[2020-06-01 06:54] LABS: ABG BASE EXCESS 0.7 mmol/L (-2.0-2.0); ABG HCO3 25.4 mmol/L (22-26)
[2020-06-01 06:55] LABS: ABG ALLEN TEST POS
[2020-06-01] MEDS: PULMICORT NEB TX 0.5 MG NEB SCH ×2 (08:40→21:05)
[2020-06-01] MEDS: MUCOMYST (RESPIRATORY USE ONLY) NEB SCH ×2 (08:40→21:05)
[2020-06-01] MEDS: DUONEB 0.5 MG/3 MG (3 mL) NEB PRN (08:40)
[2020-06-01] MEDS: LOVAZA PO SCH (10:00)
[2020-06-01] MEDS: LOVENOX INJ 40 MG SYR SC SCH (10:00)
[2020-06-01] MEDS: GLUCOPHAGE PO SCH ×2 (10:00→21:06)
[2020-06-01] MEDS: TUSSIONEX PENNKINETIC SUSP PO SCH ×2 (10:00→21:08)
[2020-06-01] MEDS: VSL#3 PO SCH (10:00)
[2020-06-01] MEDS: ROBITUSSIN DM PO SCH ×4 (10:00→21:05)
[2020-06-01] MEDS: PROTONIX TAB 40 MG PO SCH (10:00)
[2020-06-01] MEDS: TAB-A-VITE PO SCH (10:00)
[2020-06-01] MEDS: ASPIRIN PO SCH (10:00)
[2020-06-01] MEDS ORDERED: GLUCOPHAGE ONE ×2 (10:29→20:54)
[2020-06-01] MEDS: DUONEB 0.5 MG/3 MG (3 mL) NEB SCH ×2 (13:50→21:05)
[2020-06-01] MEDS ORDERED: TYLENOL 325 MG TAB PO ONE (15:04)
[2020-06-01] MEDS ORDERED: BENADRYL INJ 50 MG VIAL IVP ONE (15:04)
[2020-06-01] MEDS ORDERED: BENADRYL INJ 50 MG VIAL ONE (15:08)
[2020-06-01] MEDS ORDERED: NS 250 ML IV 250 ML IV ONE (15:09)
[2020-06-01] MEDS: TYLENOL 325 MG TAB PO PRN (15:10)
[2020-06-01] MEDS: SNACK - Diabetic Appropriate PO SCH (20:00)
[2020-06-01] MEDS: LEVAQUIN PREMIX IV 750 MG 750 MG/150 ML BAG IV SCH (20:01)
[2020-06-01] MEDS: REMDESIVIR (INVESTIGATIONAL DRUG GS-5734) 100 MG in NS 250 ML IV 250 ML IV SCH (21:02)
[2020-06-01] MEDS: LOVENOX INJ 30 MG SYR SC SCH (21:04)
[2020-06-01] MEDS: RESTORIL CAP 15 MG PO PRN (21:05)
[2020-06-01] MEDS: CRESTOR TAB 10 MG PO SCH (21:06)
[2020-06-01] MEDS: NS 1/2 1000 ML IV 1,000 ML IV SCH ×2 (21:08)
[2020-06-02 05:42] LABS: BASOPHILS % (AUTO) 0.2 % (0.2-1.0); HEMATOCRIT 44.2 % (42.0-54.0); HEMOGLOBIN 15.1 g/dL (13.5-18.0); LYMPHOCYTES # (AUTO) 0.5 X10^3/uL (1.3-2.9); LYMPHOCYTES % (AUTO) 4.3 % (21.0-51.0); MEAN CORPUSCULAR HEMOGLOBIN 30.1 pg (27.0-34.0); MEAN CORPUSCULAR HGB CONC 34.1 g/dL (33.0-35.0); MEAN CORPUSCULAR VOLUME 88.1 fL (80.0-100.0); MEAN PLATELET VOLUME 9.5 fL (7.4-11.0); MONOCYTES # (AUTO) 0.5 x10^3/uL (0.3-0.8); MONOCYTES % (AUTO) 4.1 % (0.0-13.0); NEUTROPHILS # (AUTO) 10.3 x10^3/uL (2.2-4.8); NEUTROPHILS % (AUTO) 91.4 % (42.0-75.0); PLATELET COUNT 168 X10^3/uL (150.0-450.0); RED BLOOD COUNT 5.01 X10^6/uL (4.7-6.0); RED CELL DISTRIBUTION WIDTH 13.9 % (11.6-16.5)
[2020-06-02 06:02] LABS: ALANINE AMINOTRANSFERASE 47 Units/L (12-78); ALKALINE PHOSPHATASE 90 Units/L (46-116); ASPARTATE AMINO TRANSFERASE 40 Units/L (15-37); BLOOD UREA NITROGEN 23 mg/dL (7-18); CALCIUM 8.6 mg/dL (8.5-10.1); CARBON DIOXIDE 23.2 mmol/L (21-32); CHLORIDE 103 mmol/L (98-107); COR CA(FOR HYPOALB) 9.4 mg/dL (8.5-10.1); COR NA(FOR HYPERGLY) 145 mmol/L (136-145); CREATININE 1.23 mg/dL (0.70-1.30); SODIUM 139 mmol/L (136-145); eGFR NON BLACK RACES > 60 (>60)
[2020-06-02] MEDS: DUONEB 0.5 MG/3 MG (3 mL) NEB SCH (06:03)
[2020-06-02] MEDS: NS 1/2 1000 ML IV 1,000 ML IV SCH ×2 (06:05→16:18)
[2020-06-02 06:07] LABS: PLATELET MORPHOLOGY COMMENT NORMAL (NORMAL); WHITE BLOOD COUNT 12.9 X10^3/uL (3.6-10.0)
[2020-06-02] MEDS: SOLU-Medrol 40 MG VIAL IVP SCH ×3 (06:20→22:20)
--- NOTE | 2020-06-02 07:36 | RAD ---
HISTORYPneumonia fever SOBSTUDYAP [id number]/14/2020FINDINGSStable cardiac size. Slight improvement in pulmonary aeration with decreasing infiltrates. There is mild nonspecific interstitial prominence remaining. There is no evidence for new consolidation, pneumothorax or developing pleural fluid.IMPRESSIONSlight apparent improvement in appearance of the chest.Electronically signed by: GABBY CROWE (Jun 02, 2020 07:35:45)
[2020-06-02] MEDS ORDERED: GLUCOPHAGE ONE ×2 (08:22→20:29)
[2020-06-02] MEDS: VSL#3 PO SCH (08:46)
[2020-06-02] MEDS: LOVAZA PO SCH (08:47)
[2020-06-02] MEDS: ASPIRIN PO SCH (08:47)
[2020-06-02] MEDS: ROBITUSSIN DM PO SCH ×4 (08:48→21:01)
[2020-06-02] MEDS: PROTONIX TAB 40 MG PO SCH (08:48)
[2020-06-02] MEDS: GLUCOPHAGE PO SCH ×2 (08:48→20:56)
[2020-06-02] MEDS: TAB-A-VITE PO SCH (08:49)
[2020-06-02] MEDS: LOVENOX INJ 30 MG SYR SC SCH ×2 (08:49→20:58)
[2020-06-02] MEDS: TUSSIONEX PENNKINETIC SUSP PO SCH ×2 (08:55→21:17)
[2020-06-02] MEDS: PULMICORT NEB TX 0.5 MG NEB SCH ×2 (09:55→20:40)
[2020-06-02] MEDS ORDERED: XOPENEX 1.25 MG/3 ML NEBULE NEB ONE (12:25)
[2020-06-02] MEDS: HumuLIN R SUBCUT PRN ×3 (12:40→22:21)
[2020-06-02] MEDS: MUCOMYST (RESPIRATORY USE ONLY) NEB SCH ×2 (13:15→20:40)
[2020-06-02] MEDS: XOPENEX 1.25 MG/3 ML NEBULE NEB SCH ×2 (13:15→20:40)
[2020-06-02] MEDS: SNACK - Diabetic Appropriate PO SCH (20:00)
[2020-06-02] MEDS ORDERED: NS 1/2 1000 ML IV 1,000 ML IV ONE (20:36)
[2020-06-02] MEDS: CRESTOR TAB 10 MG PO SCH (20:56)
[2020-06-02] MEDS: LEVAQUIN PREMIX IV 750 MG 750 MG/150 ML BAG IV SCH (20:57)
[2020-06-02] MEDS: REMDESIVIR (INVESTIGATIONAL DRUG GS-5734) 100 MG in NS 250 ML IV 250 ML IV SCH (20:58)
[2020-06-02] MEDS: TYLENOL 325 MG TAB PO PRN (21:02)
[2020-06-02] MEDS: RESTORIL CAP 15 MG PO PRN (22:22)
[2020-06-03] MEDS: NS 1/2 1000 ML IV 1,000 ML IV SCH ×5 (01:16→20:44)
[2020-06-03] MEDS ORDERED: NS 1/2 1000 ML IV 1,000 ML IV ONE ×2 (03:09→16:38)
[2020-06-03] MEDS: XOPENEX 1.25 MG/3 ML NEBULE NEB SCH ×3 (05:40→20:55)
[2020-06-03] MEDS: MUCOMYST (RESPIRATORY USE ONLY) NEB SCH ×3 (05:40→20:55)
[2020-06-03] MEDS: SOLU-Medrol 40 MG VIAL IVP SCH ×3 (06:01→21:33)
[2020-06-03] MEDS: HumuLIN R SUBCUT PRN ×4 (06:17→21:00)
[2020-06-03 06:24] LABS: BASOPHILS % (AUTO) 0.1 % (0.2-1.0); HEMATOCRIT 40.9 % (42.0-54.0); HEMOGLOBIN 13.7 g/dL (13.5-18.0); LYMPHOCYTES # (AUTO) 0.3 X10^3/uL (1.3-2.9); LYMPHOCYTES % (AUTO) 4.8 % (21.0-51.0); MEAN CORPUSCULAR HEMOGLOBIN 29.5 pg (27.0-34.0); MEAN CORPUSCULAR HGB CONC 33.5 g/dL (33.0-35.0); MEAN CORPUSCULAR VOLUME 88.2 fL (80.0-100.0); MEAN PLATELET VOLUME 9.2 fL (7.4-11.0); MONOCYTES # (AUTO) 0.3 x10^3/uL (0.3-0.8); MONOCYTES % (AUTO) 5.5 % (0.0-13.0); NEUTROPHILS # (AUTO) 5.3 x10^3/uL (2.2-4.8); NEUTROPHILS % (AUTO) 89.6 % (42.0-75.0); PLATELET COUNT 146 X10^3/uL (150.0-450.0); RED BLOOD COUNT 4.63 X10^6/uL (4.7-6.0); WHITE BLOOD COUNT 5.9 X10^3/uL (3.6-10.0)
[2020-06-03 06:50] LABS: ALANINE AMINOTRANSFERASE 53 Units/L (12-78); ALBUMIN 2.6 g/dL (3.4-5.0); ALKALINE PHOSPHATASE 73 Units/L (46-116); ASPARTATE AMINO TRANSFERASE 39 Units/L (15-37); BLOOD UREA NITROGEN 20 mg/dL (7-18); CALCIUM 8.6 mg/dL (8.5-10.1); CARBON DIOXIDE 27.3 mmol/L (21-32); CHLORIDE 106 mmol/L (98-107); COR CA(FOR HYPOALB) 9.7 mg/dL (8.5-10.1); COR NA(FOR HYPERGLY) 146 mmol/L (136-145); CREATININE 0.88 mg/dL (0.70-1.30); SODIUM 141 mmol/L (136-145); eGFR NON BLACK RACES > 60 (>60)
[2020-06-03] MEDS ORDERED: GLUCOPHAGE ONE ×2 (08:32→19:27)
[2020-06-03] MEDS: GLUCOPHAGE PO SCH ×2 (08:47→20:39)
[2020-06-03] MEDS: TAB-A-VITE PO SCH (08:48)
[2020-06-03] MEDS: ASPIRIN PO SCH (08:48)
[2020-06-03] MEDS: ROBITUSSIN DM PO SCH ×4 (08:49→20:46)
[2020-06-03] MEDS: LOVENOX INJ 30 MG SYR SC SCH ×2 (08:49→20:44)
[2020-06-03] MEDS: TUSSIONEX PENNKINETIC SUSP PO SCH ×2 (08:49→20:46)
[2020-06-03] MEDS: LOVAZA PO SCH (08:50)
[2020-06-03] MEDS: PROTONIX TAB 40 MG PO SCH (08:50)
[2020-06-03] MEDS: VSL#3 PO SCH (08:51)
[2020-06-03] MEDS: PULMICORT NEB TX 0.5 MG NEB SCH ×2 (10:15→20:55)
--- NOTE | 2020-06-03 14:09 | RAD ---
HISTORYshortness of breathSTUDYCHEST, 1 VIEWCOMPARISONYesterdayFINDINGSThe trachea is midline. The cardiac silhouette is unremarkable . The lungs demonstrate some mild persistent interstitial infiltrates similar to prior the bony thorax is unremarkable.IMPRESSIONStable chest.Electronically signed by: GIO CARLOS (Jun 03, 2020 14:08:15)
--- NOTE | 2020-06-03 20:33 | PCM.PROG ---
Progress Note - Progress Note for Day of Date of Exam: 06/01/20 - Subjective Subjective: IS BEING TREATED FOR ACUTE BRONCHITIS DUE TO COVID-19. TODAY, HE IS ALERT AND ORIENTED, LYING IN BED ON MORNING ROUNDS. HE CONTINUES WITH COMPLAINTS OF COUGH, SHORNTESS OF BREATH, AND WEAKNESS. ON EXAMINATION, HEART IS REGULAR IN RATE AND RHYTHM. BILATERAL LUNGS ARE NOTED WITH SCATTERED WHEEZING THROUGHOUT. ABDOMEN IS ROUND, SOFT, AND NON-TENDER WITH NORMAL BOWEL SOUNDS NOTED IN ALL QUADRANTS. HIS VITALS THIS MORNING ARE: 98.8-57-22-91NC-156/71. LABS WERE OBTAINED. ABNORMAL LAB VALUES INCLUDE THE FOLLOWING: HCT 41.6, PLT COUNT 124, BUN 20, GLUCOSE 322, FERRITIN 2189, AST 41, CRP 73.80, ALBUMIN 2.8. SPUTUM AND BLOOD CULTURES ARE PENDING. A CHEST XRAY WAS OBTAINED AND REVEALED: Mild worsening in patchy bibasilar opacities that could represent developing pneumonia. HE IS CURRENTLY RECEIVING NS AT 75 ML/HR, LEVAQUIN 750MG IV DAILY, REMDESIVIR 200MG IV X 1 DOSE, THEN 100MG IV DAILY, DUONEBS QID PRN, PULMICORT BID, MUCOMYST NEB TX BID, TUSSIONEX 5ML PO Q12H, ROBITUSSIN 10ML PO QID, SOLU-MEDROL 80MG IV Q8H, LOVENOX 40MG SC DAILY, HUMULIN R SLIDING SCALE, OTBS ACHS, AND HOME MEDICATIONS WERE RESUMED. WE HAVE ORDERED A UNIT OF [facility] AND WILL TRANSFUSE WHEN IT IS AVAILABLE. OTHERWISE, WE WILL CONTINUE WITH CURRENT PLAN OF CARE TODAY. WE PLAN TO FOLLOW UP WITH AM LABS, CHEST XRAY, AND ABG AND CONTINUE TO MONITOR. - Past Medical Family Social History Past Med/Fam/Surg Hx: No changes since H&P Allergies: Allergies No Known Drug Allergies Allergy (Verified 05/26/20 23:37) - Review of Systems ROS: No change since H&P - Vital Signs and I&O's Vital Signs: Temperature 97.7 F Pulse Rate [Apical] 91 Pulse Rate 88 Respiratory Rate 20 Blood Pressure [Left Arm] 147/67 Blood Pressure [Right Arm] 148/67 Blood Pressure 154/76 O2 Sat by Pulse Oximetry 100 Intake and Output: Intake & Output 06/01/20 06/02/20 06/03/20 06/04/20 11:59 11:59 11:59 11:59 Intake Total 3770 / 3770 2831 / 2831 3548 / 3548 1600 / 1600 Output Total 3150 / 3150 2650 / 2650 2425 / 2425 1100 / 1100 Balance 620 / 620 181 / 181 1123 / 1123 500 / 500 - Physical Exam Oriented: Normal Eyes: Normal Ear: Normal Nose: Normal Throat: Normal Respiratory: Generalized, Diminished, Wheezes Cardiovascular: Normal : Normal Auscultation: Bowel Sounds: Normal Palpation: Normal Tenderness: Normal Skin: Normal Musculoskeletal: Normal Psychiatric: Normal Mood Description: Calm Affect: Normal Speech Pattern: Clear, Appropriate - Laboratory and Diagnostics Result Diagrams: 06/03/20 05:15 06/03/20 05:15 Labs: 05/31/20 21:55 Sputum - Expectorated Sputum Sputum Culture - Final Stenotrophomonas Maltophilia 05/31/20 21:55 Sputum - Expectorated Sputum - Final 05/30/20 17:30 Blood Blood Culture - Preliminary 05/30/20 17:30 Blood Blood Culture - Preliminary Laboratory WBC 5.9 X10^3/uL (3.6-10.0) 06/03/20 05:15 RBC 4.63 X10^6/uL (4.7-6.0) L 06/03/20 05:15 Hgb 13.7 g/dL (13.5-18.0) 06/03/20 05:15 Hct 40.9 % (42.0-54.0) L 06/03/20 05:15 MCV 88.2 fL (80.0-100.0) 06/03/20 05:15 MCH 29.5 pg (27.0-34.0) 06/03/20 05:15 MCHC 33.5 g/dL (33.0-35.0) 06/03/20 05:15 RDW 14.0 % (11.6-16.5) 06/03/20 05:15 Plt Count 146 X10^3/uL (150.0-450.0) L 06/03/20 05:15 Plt Count Comment Adequate (ADEQUATE) 06/02/20 04:05 MPV 9.2 fL (7.4-11.0) 06/03/20 05:15 Neut % (Auto) 89.6 % (42.0-75.0) H 06/03/20 05:15 Lymph % (Auto) 4.8 % (21.0-51.0) L 06/03/20 05:15 Labette % (Auto) 5.5 % (0.0-13.0) 06/03/20 05:15 Eos % (Auto) 0.0 % (0.9-2.9) L 06/03/20 05:15 Baso % (Auto) 0.1 % (0.2-1.0) L 06/03/20 05:15 Neut # (Auto) 5.3 x10^3/uL (2.2-4.8) H 06/03/20 05:15 Lymph # (Auto) 0.3 X10^3/uL (1.3-2.9) L 06/03/20 05:15 Labette # (Auto) 0.3 x10^3/uL (0.3-0.8) 06/03/20 05:15 Eos # (Auto) 0.0 x10^3/uL (0.0-0.2) 06/03/20 05:15 Baso # (Auto) 0.0 X10^3/uL (0.0-0.1) 06/03/20 05:15 Absolute Nucleated RBC 0.1 /100WBC 06/03/20 05:15 Total Counted 100 06/02/20 04:05 Neutrophils % (Manual) 93 % (39-76) H 06/02/20 04:05 Band Neutrophils % 2 % (0-10) 05/31/20 05:05 Lymphocytes % (Manual) 2 % (13-43) L 06/02/20 04:05 Monocytes % (Manual) 5 % (4-9) 06/02/20 04:05 Plt Morphology Comment Normal (NORMAL) 06/02/20 04:05 RBC Morphology Normal (NORMAL) 06/02/20 04:05 Sample Site Rrad 06/01/20 04:12 ABG pH 7.410 (7.35-7.45) 06/01/20 04:12 ABG pCO2 40.0 mmHg (35.0-45.0) 06/01/20 04:12 ABG pO2 67.0 mmHg (80.0-100.0) L 06/01/20 04:12 ABG HCO3 25.4 mmol/L (22-26) 06/01/20 04:12 ABG O2 Saturation 93.0 % (90-100) 06/01/20 04:12 ABG Base Excess 0.7 mmol/L (-2.0-2.0) 06/01/20 04:12 Esvin Test Pos 06/01/20 04:12 A-a Gradient 83.0 mmHg 06/01/20 04:12 FiO2 28.0 06/01/20 04:12 Blood Gas Comments Karo abg well-mtf 06/01/20 04:12 Sodium 141 mmol/L (136-145) 06/03/20 05:15 Corrected Sodium 146 mmol/L (136-145) H 06/03/20 05:15 Potassium 4.4 mmol/L (3.5-5.1) 06/03/20 05:15 Chloride 106 mmol/L (98-107) 06/03/20 05:15 Carbon Dioxide 27.3 mmol/L (21-32) 06/03/20 05:15 BUN 20 mg/dL (7-18) H 06/03/20 05:15 Creatinine 0.88 mg/dL (0.70-1.30) 06/03/20 05:15 Est GFR (MDRD) Af Amer > 60 (>60) 06/03/20 05:15 Est GFR (MDRD) Non-Af > 60 (>60) 06/03/20 05:15 Glucose 295 mg/dL (65-99) H 06/03/20 05:15 POC Glucose (mg/dL) 309 mg/dL (65-99) H 06/03/20 16:17 Calcium 8.6 mg/dL (8.5-10.1) 06/03/20 05:15 Corrected Calcium 9.7 mg/dL (8.5-10.1) 06/03/20 05:15 Ferritin 1743 ng/mL (26-388) H 06/03/20 05:15 Total Bilirubin 0.40 mg/dL (0.2-1.0) 06/03/20 05:15 AST 39 Units/L (15-37) H 06/03/20 05:15 ALT 53 Units/L (12-78) 06/03/20 05:15 Alkaline Phosphatase 73 Units/L (46-116) 06/03/20 05:15 C-Reactive Protein 23.30 mg/L (0-3.0) H 06/03/20 05:15 Total Protein 6.0 g/dL (6.4-8.2) L 06/03/20 05:15 Albumin 2.6 g/dL (3.4-5.0) L 06/03/20 05:15 Globulin 3.4 g/dL (2.5-4.5) 06/03/20 05:15 Albumin/Globulin Ratio 0.8 Ratio (1.1-2.1) L 06/03/20 05:15 SARS-CoV-2 (PCR) Positive (NEGATIVE) A 05/30/20 15:40 Blood Type O POSITIVE 05/30/20 17:30 Antibody Screen Cancelled 05/30/20 17:30 - Plan (1) Acute bronchitis due to 2019 novel coronavirus Status: Acute Plan: NS AT 75 ML/HR, LEVAQUIN 750MG IV DAILY, REMDESIVIR 200MG IV X 1 DOSE, THEN 100MG IV DAILY, DUONEBS QID PRN, PULMICORT BID, MUCOMYST NEB TX BID, TU SSIONEX 5ML PO Q12H, ROBITUSSIN 10ML PO QID, SOLU-MEDROL 80MG IV Q8H, LOVENOX 40MG SC DAILY, HUMULIN R SLIDING SCALE, OTBS ACHS, AND HOME MEDICATIONS WERE RESUMED. TRANSFUSE PLASMA WHEN AVAILABLE (2) Shortness of breath Status: Acute (3) Fever Status: Acute Qualifiers: Fever type: unspecified Qualified Code(s): R50.9 - Fever, unspecified
[2020-06-03] MEDS: SNACK - Diabetic Appropriate PO SCH (20:39)
[2020-06-03] MEDS: CRESTOR TAB 10 MG PO SCH (20:42)
[2020-06-03] MEDS: LEVAQUIN PREMIX IV 750 MG 750 MG/150 ML BAG IV SCH (20:43)
[2020-06-03] MEDS: REMDESIVIR (INVESTIGATIONAL DRUG GS-5734) 100 MG in NS 250 ML IV 250 ML IV SCH (20:46)
[2020-06-03] MEDS: TYLENOL 325 MG TAB PO PRN (20:47)
[2020-06-04] MEDS: SOLU-Medrol 40 MG VIAL IVP SCH ×3 (05:21→22:12)
[2020-06-04] MEDS: MUCOMYST (RESPIRATORY USE ONLY) NEB SCH ×3 (05:36→21:20)
[2020-06-04] MEDS: XOPENEX 1.25 MG/3 ML NEBULE NEB SCH ×3 (05:36→21:20)
[2020-06-04] MEDS: HumuLIN R SUBCUT PRN ×3 (05:38→22:14)
[2020-06-04 05:59] LABS: ABG BASE EXCESS 3.9 mmol/L (-2.0-2.0); ABG HCO3 27.7 mmol/L (22-26)
[2020-06-04 06:00] LABS: ABG ALLEN TEST POS
--- NOTE | 2020-06-04 06:07 | RAD ---
HISTORYSOB, PNEUMONIA, FEVER, COVID +STUDYCHEST, 1 [id number] view of the chestFINDINGSCardiac and mediastinal contours are stable. Stable mild scattered airspace opacities. No pleural effusion or pneumothorax.IMPRESSIONNo acute pulmonary process.Electronically signed by: Fuentes Souza (Jun 04, 2020 06:06:10)
[2020-06-04 06:09] LABS: ALANINE AMINOTRANSFERASE 60 Units/L (12-78); ALBUMIN 2.6 g/dL (3.4-5.0); ALKALINE PHOSPHATASE 66 Units/L (46-116); ASPARTATE AMINO TRANSFERASE 38 Units/L (15-37); BLOOD UREA NITROGEN 18 mg/dL (7-18); CALCIUM 8.1 mg/dL (8.5-10.1); CARBON DIOXIDE 26.2 mmol/L (21-32); CHLORIDE 103 mmol/L (98-107); COR CA(FOR HYPOALB) 9.2 mg/dL (8.5-10.1); COR NA(FOR HYPERGLY) 142 mmol/L (136-145); CREATININE 0.86 mg/dL (0.70-1.30); SODIUM 138 mmol/L (136-145); eGFR NON BLACK RACES > 60 (>60)
[2020-06-04 06:18] LABS: BASOPHILS % (AUTO) 0.1 % (0.2-1.0); HEMOGLOBIN 13.8 g/dL (13.5-18.0); LYMPHOCYTES # (AUTO) 0.2 X10^3/uL (1.3-2.9); LYMPHOCYTES % (AUTO) 4.5 % (21.0-51.0); MEAN CORPUSCULAR HEMOGLOBIN 29.2 pg (27.0-34.0); MEAN CORPUSCULAR HGB CONC 33.6 g/dL (33.0-35.0); MEAN PLATELET VOLUME 8.7 fL (7.4-11.0); MONOCYTES # (AUTO) 0.3 x10^3/uL (0.3-0.8); MONOCYTES % (AUTO) 4.7 % (0.0-13.0); NEUTROPHILS # (AUTO) 4.9 x10^3/uL (2.2-4.8); NEUTROPHILS % (AUTO) 90.7 % (42.0-75.0); PLATELET COUNT 159 X10^3/uL (150.0-450.0); RED BLOOD COUNT 4.72 X10^6/uL (4.7-6.0); RED CELL DISTRIBUTION WIDTH 13.7 % (11.6-16.5); WHITE BLOOD COUNT 5.4 X10^3/uL (3.6-10.0)
[2020-06-04 07:28] LABS: BAND NEUTROPHILS % 1 % (0-10); PLATELET MORPHOLOGY COMMENT NORMAL (NORMAL)
[2020-06-04] MEDS ORDERED: GLUCOPHAGE ONE ×3 (08:38→19:30)
[2020-06-04] MEDS: PULMICORT NEB TX 0.5 MG NEB SCH ×2 (09:05→21:20)
[2020-06-04] MEDS: VSL#3 PO SCH (10:11)
[2020-06-04] MEDS: PROTONIX TAB 40 MG PO SCH (10:12)
[2020-06-04] MEDS: LOVAZA PO SCH (10:12)
[2020-06-04] MEDS: ASPIRIN PO SCH (10:12)
[2020-06-04] MEDS: TAB-A-VITE PO SCH (10:12)
[2020-06-04] MEDS: ROBITUSSIN DM PO SCH ×4 (10:13→20:36)
[2020-06-04] MEDS: TUSSIONEX PENNKINETIC SUSP PO SCH ×2 (10:13→20:36)
[2020-06-04] MEDS: GLUCOPHAGE PO SCH ×2 (10:13→20:37)
[2020-06-04] MEDS ORDERED: LOVENOX INJ 40 MG SYR SC ONE (10:23)
[2020-06-04] MEDS ORDERED: NS 1/2 1000 ML IV 1,000 ML IV ONE (10:37)
[2020-06-04] MEDS: NS 1/2 1000 ML IV 1,000 ML IV SCH (10:43)
[2020-06-04] MEDS ORDERED: MAALOX or MYLANTA ONE (10:59)
[2020-06-04] MEDS ORDERED: LOVENOX INJ 40 MG SYR SC SCH (11:00)
[2020-06-04] MEDS: MILK OF MAGNESIA PO SCH ×4 (11:30→20:36)
[2020-06-04] MEDS: MIRALAX POWDER (1 DOSE 17 G) PO SCH (13:00)
[2020-06-04] MEDS: COLACE CAP 100 MG PO SCH ×2 (17:25→20:36)
--- NOTE | 2020-06-04 18:18 | PCM.PROG ---
Progress Note - Progress Note for Day of Date of Exam: 06/02/20 - Subjective Subjective: IS BEING TREATED FOR ACUTE BRONCHITIS DUE TO COVID-19. TODAY, HE IS ALERT AND ORIENTED, LYING IN BED ON MORNING ROUNDS. HE CONTINUES WITH COMPLAINTS OF COUGH, SHORNTESS OF BREATH, AND WEAKNESS. HE DENIES SIGNIFICANT IMPROVEMENT SINCE ADMISSION. ON EXAMINATION, HEART IS REGULAR IN RATE AND RHYTHM. BILATERAL LUNGS ARE NOTED WITH SCATTERED WHEEZING THROUGHOUT. ABDOMEN IS ROUND, SOFT, AND NON-TENDER WITH NORMAL BOWEL SOUNDS NOTED IN ALL QUADRANTS. HIS VITALS THIS MORNING ARE: 98.7-95-21-93%NC-132/60. LABS WERE OBTAINED. ABNORMAL LAB VALUES INCLUDE THE FOLLOWING: WBC 12.9, BUN 23, GLUCOSE 333, FERRITIN 2112, AST 40, CRP 37.80, ALBUMIN 3.0. SPUTUM AND BLOOD CULTURES ARE PENDING. A CHEST XRAY WAS OBTAINED AND REVEALED: Stable cardiac size. Slight improvement in pulmonary aeration with decreasing infiltrates. There is mild nonspecific interstitial prominence remaining. There is no evidence for new consolidation, pneumothorax or developing pleural fluid. HE IS CURRENTLY RECEI VING NS AT 75 ML/HR, LEVAQUIN 750MG IV DAILY, REMDESIVIR 100MG IV DAILY, X, PULMICORT BID, XOPENEX NEBS TID, MUCOMYST NEB TX BID, TUSSIONEX 5ML PO Q12H, ROBITUSSIN 10ML PO QID, SOLU-MEDROL 80MG IV Q8H, LOVENOX 40MG SC DAILY, HUMULIN R SLIDING SCALE, OTBS ACHS, AND HOME MEDICATIONS WERE RESUMED. WE HAVE ORDERED A UNIT OF CONVALESCENT PLASMA AND WILL TRANSFUSE WHEN IT IS AVAILABLE. OTHERWISE, WE WILL CONTINUE WITH CURRENT PLAN OF CARE TODAY. WE PLAN TO FOLLOW UP WITH AM LABS, CHEST XRAY, AND ABG AND CONTINUE TO MONITOR. - Past Medical Family Social History Past Med/Fam/Surg Hx: No changes since H&P Allergies: Allergies No Known Drug Allergies Allergy (Verified 05/26/20 23:37) - Review of Systems ROS: No change since H&P - Vital Signs and I&O's Vital Signs: Temperature 98.4 F Pulse Rate [Apical] 95 Pulse Rate 88 Respiratory Rate 20 Blood Pressure [Left Arm] 147/67 Blood Pressure [Right Arm] 135/72 Blood Pressure 154/76 O2 Sat by Pulse Oximetry 96 Intake and Output: Intake & Output 06/02/20 06/03/20 06/04/20 06/05/20 11:59 11:59 11:59 11:59 Intake Total 2831 / 2831 3548 / 3548 4762 / 4762 1640 / 1640 Output Total 2650 / 2650 2425 / 2425 3550 / 3550 1625 / 1625 Balance 181 / 181 1123 / 1123 1212 / 1212 - Physical Exam Oriented: Normal Eyes: Normal Ear: Normal Nose: Normal Throat: Normal Respiratory: Generalized, Diminished, Wheezes Cardiovascular: Normal : Normal Auscultation: Bowel Sounds: Normal Palpation: Normal Tenderness: Normal Skin: Normal Musculoskeletal: Normal Psychiatric: Normal Mood Description: Calm Affect: Normal Speech Pattern: Clear, Appropriate - Laboratory and Diagnostics Result Diagrams: 06/04/20 05:28 06/04/20 05:28 Labs: 05/31/20 21:55 Sputum - Expectorated Sputum Sputum Culture - Final Stenotrophomonas Maltophilia 05/31/20 21:55 Sputum - Expectorated Sputum - Final 05/30/20 17:30 Blood Blood Culture - Preliminary 05/30/20 17:30 Blood Blood Culture - Preliminary Laboratory WBC 5.4 X10^3/uL (3.6-10.0) 06/04/20 05:28 RBC 4.72 X10^6/uL (4.7-6.0) 06/04/20 05:28 Hgb 13.8 g/dL (13.5-18.0) 06/04/20 05:28 Hct 41.0 % (42.0-54.0) L 06/04/20 05:28 MCV 87.0 fL (80.0-100.0) 06/04/20 05:28 MCH 29.2 pg (27.0-34.0) 06/04/20 05:28 MCHC 33.6 g/dL (33.0-35.0) 06/04/20 05:28 RDW 13.7 % (11.6-16.5) 06/04/20 05:28 Plt Count 159 X10^3/uL (150.0-450.0) 06/04/20 05:28 Plt Count Comment Adequate (ADEQUATE) 06/04/20 05:28 MPV 8.7 fL (7.4-11.0) 06/04/20 05:28 Neut % (Auto) 90.7 % (42.0-75.0) H 06/04/20 05:28 Lymph % (Auto) 4.5 % (21.0-51.0) L 06/04/20 05:28 [place] % (Auto) 4.7 % (0.0-13.0) 06/04/20 05:28 Eos % (Auto) 0.0 % (0.9-2.9) L 06/04/20 05:28 Baso % (Auto) 0.1 % (0.2-1.0) L 06/04/20 05:28 Neut # (Auto) 4.9 x10^3/uL (2.2-4.8) H 06/04/20 05:28 Lymph # (Auto) 0.2 X10^3/uL (1.3-2.9) L 06/04/20 05:28 [place] # (Auto) 0.3 x10^3/uL (0.3-0.8) 06/04/20 05:28 Eos # (Auto) 0.0 x10^3/uL (0.0-0.2) 06/04/20 05:28 Baso # (Auto) 0.0 X10^3/uL (0.0-0.1) 06/04/20 05:28 Absolute Nucleated RBC 0.1 /100WBC 06/04/20 05:28 Total Counted 100 06/04/20 05:28 Neutrophils % (Manual) 88 % (39-76) H 06/04/20 05:28 Band Neutrophils % 1 % (0-10) 06/04/20 05:28 Lymphocytes % (Manual) 7 % (13-43) L 06/04/20 05:28 Monocytes % (Manual) 4 % (4-9) 06/04/20 05:28 Plt Morphology Comment Normal (NORMAL) 06/04/20 05:28 RBC Morphology Normal (NORMAL) 06/04/20 05:28 Sample Site Lr 06/04/20 05:54 ABG pH 7.470 (7.35-7.45) H 06/04/20 05:54 ABG pCO2 38.0 mmHg (35.0-45.0) 06/04/20 05:54 ABG pO2 51.0 mmHg (80.0-100.0) L 06/04/20 05:54 ABG HCO3 27.7 mmol/L (22-26) H 06/04/20 05:54 ABG O2 Saturation 88.0 % (90-100) L 06/04/20 05:54 ABG Base Excess 3.9 mmol/L (-2.0-2.0) H 06/04/20 05:54 Esvin Test Pos 06/04/20 05:54 A-a Gradient 130.0 mmHg 06/04/20 05:54 FiO2 32.0 06/04/20 05:54 Blood Gas Comments Karo well ae 06/04/20 05:54 Sodium 138 mmol/L (136-145) 06/04/20 05:28 Corrected Sodium 142 mmol/L (136-145) 06/04/20 05:28 Potassium 4.1 mmol/L (3.5-5.1) 06/04/20 05:28 Chloride 103 mmol/L (98-107) 06/04/20 05:28 Carbon Dioxide 26.2 mmol/L (21-32) 06/04/20 05:28 BUN 18 mg/dL (7-18) 06/04/20 05:28 Creatinine 0.86 mg/dL (0.70-1.30) 06/04/20 05:28 Est GFR (MDRD) Af Amer > 60 (>60) 06/04/20 05:28 Est GFR (MDRD) Non-Af > 60 (>60) 06/04/20 05:28 Glucose 277 mg/dL (65-99) H 06/04/20 05:28 POC Glucose (mg/dL) 320 mg/dL (65-99) H 06/04/20 17:03 Calcium 8.1 mg/dL (8.5-10.1) L 06/04/20 05:28 Corrected Calcium 9.2 mg/dL (8.5-10.1) 06/04/20 05:28 Ferritin 1728 ng/mL (26-388) H 06/04/20 05:28 Total Bilirubin 0.60 mg/dL (0.2-1.0) 06/04/20 05:28 AST 38 Units/L (15-37) H 06/04/20 05:28 ALT 60 Units/L (12-78) 06/04/20 05:28 Alkaline Phosphatase 66 Units/L (46-116) 06/04/20 05:28 C-Reactive Protein 14.90 mg/L (0-3.0) H 06/04/20 05:28 Total Protein 6.0 g/dL (6.4-8.2) L 06/04/20 05:28 Albumin 2.6 g/dL (3.4-5.0) L 06/04/20 05:28 Globulin 3.4 g/dL (2.5-4.5) 06/04/20 05:28 Albumin/Globulin Ratio 0.8 Ratio (1.1-2.1) L 06/04/20 05:28 SARS-CoV-2 (PCR) Positive (NEGATIVE) A 05/30/20 15:40 Blood Type O POSITIVE 05/30/20 17:30 Antibody Screen Cancelled 05/30/20 17:30 - Plan (1) Acute bronchitis due to 2019 novel coronavirus Status: Acute Plan: NS AT 75 ML/HR, LEVAQUIN 750MG IV DAILY, REMDESIVIR 200MG IV X 1 DOSE, THEN 100MG IV DAILY, XOPENEX NEBS TID, PULMICORT BID, MUCOMYST NEB TX BID, TUSSIONEX 5ML PO Q12H, ROBITUSSIN 10ML PO QID, SOLU-MEDROL 80MG IV Q8H, LOVENOX 40MG SC DAILY, HUMULIN R SLIDING SCALE, OTBS ACHS, AND HOME MEDICATIONS WERE RESUMED. TRANSFUSE PLASMA WHEN AVAILABLE (2) Shortness of breath Status: Acute (3) Fever Status: Acute Qualifiers: Fever type: unspecified Qualified Code(s): R50.9 - Fever, unspecified
[2020-06-04] MEDS: SNACK - Diabetic Appropriate PO SCH (20:35)
[2020-06-04] MEDS: REMDESIVIR (INVESTIGATIONAL DRUG GS-5734) 100 MG in NS 250 ML IV 250 ML IV SCH (20:36)
[2020-06-04] MEDS: LEVAQUIN PREMIX IV 750 MG 750 MG/150 ML BAG IV SCH (20:37)
[2020-06-04] MEDS: CRESTOR TAB 10 MG PO SCH (20:37)
[2020-06-05] MEDS ORDERED: NS 1/2 1000 ML IV 1,000 ML IV ONE ×2 (03:33→16:45)
[2020-06-05] MEDS: SOLU-Medrol 40 MG VIAL IVP SCH ×3 (05:33→21:12)
[2020-06-05] MEDS: NS 1/2 1000 ML IV 1,000 ML IV SCH ×3 (05:34→16:53)
[2020-06-05 05:38] LABS: ABG ALLEN TEST POS; ABG BASE EXCESS 5.6 mmol/L (-2.0-2.0); ABG HCO3 29.8 mmol/L (22-26); FRACTIONATED INSPIRED OXYGEN 28
[2020-06-05 06:02] LABS: BASOPHILS % (AUTO) 0.1 % (0.2-1.0); HEMATOCRIT 41.3 % (42.0-54.0); LYMPHOCYTES # (AUTO) 0.3 X10^3/uL (1.3-2.9); LYMPHOCYTES % (AUTO) 4.7 % (21.0-51.0); MEAN CORPUSCULAR HEMOGLOBIN 29.4 pg (27.0-34.0); MEAN CORPUSCULAR HGB CONC 33.9 g/dL (33.0-35.0); MEAN CORPUSCULAR VOLUME 86.7 fL (80.0-100.0); MEAN PLATELET VOLUME 8.5 fL (7.4-11.0); MONOCYTES # (AUTO) 0.4 x10^3/uL (0.3-0.8); MONOCYTES % (AUTO) 6.1 % (0.0-13.0); NEUTROPHILS # (AUTO) 5.5 x10^3/uL (2.2-4.8); NEUTROPHILS % (AUTO) 89.1 % (42.0-75.0); PLATELET COUNT 175 X10^3/uL (150.0-450.0); RED BLOOD COUNT 4.76 X10^6/uL (4.7-6.0); RED CELL DISTRIBUTION WIDTH 13.8 % (11.6-16.5); WHITE BLOOD COUNT 6.1 X10^3/uL (3.6-10.0)
--- NOTE | 2020-06-05 06:05 | RAD ---
HISTORYSOBSTUDYCHEST, 1 [id number]/17/2020TECHNIQUEAP view of the chestFINDINGSCardiac and mediastinal contours appear stable. Stable mild scattered interstitial opacities. No pleural effusion or pneumothorax.IMPRESSIONNo significant change.Electronically signed by: Fuentes Souza (Jun 05, 2020 06:05:12)
[2020-06-05 06:21] LABS: ALANINE AMINOTRANSFERASE 63 Units/L (12-78); ALBUMIN 2.6 g/dL (3.4-5.0); ALKALINE PHOSPHATASE 70 Units/L (46-116); ASPARTATE AMINO TRANSFERASE 31 Units/L (15-37); BLOOD UREA NITROGEN 16 mg/dL (7-18); CALCIUM 8.2 mg/dL (8.5-10.1); CARBON DIOXIDE 31.2 mmol/L (21-32); CHLORIDE 101 mmol/L (98-107); COR CA(FOR HYPOALB) 9.3 mg/dL (8.5-10.1); COR NA(FOR HYPERGLY) 140 mmol/L (136-145); CREATININE 0.88 mg/dL (0.70-1.30); SODIUM 136 mmol/L (136-145); TOTAL PROTEIN 5.9 g/dL (6.4-8.2); eGFR NON BLACK RACES > 60 (>60)
[2020-06-05] MEDS: XOPENEX 1.25 MG/3 ML NEBULE NEB SCH ×3 (06:23→21:10)
[2020-06-05] MEDS: MUCOMYST (RESPIRATORY USE ONLY) NEB SCH ×3 (06:23→21:10)
[2020-06-05] MEDS: HumuLIN R SUBCUT PRN ×4 (06:45→21:11)
[2020-06-05] MEDS ORDERED: GLUCOPHAGE ONE ×2 (07:42→19:04)
[2020-06-05] MEDS: ASPIRIN PO SCH (09:05)
[2020-06-05] MEDS: GLUCOPHAGE PO SCH ×2 (09:05→20:21)
[2020-06-05] MEDS: COLACE CAP 100 MG PO SCH ×2 (09:05→20:19)
[2020-06-05] MEDS: MILK OF MAGNESIA PO SCH ×4 (09:06→20:19)
[2020-06-05] MEDS: LOVAZA PO SCH (09:06)
[2020-06-05] MEDS: MIRALAX POWDER (1 DOSE 17 G) PO SCH (09:06)
[2020-06-05] MEDS: PROTONIX TAB 40 MG PO SCH (09:07)
[2020-06-05] MEDS: LOVENOX INJ 30 MG SYR SC SCH ×2 (09:07→21:11)
[2020-06-05] MEDS: ROBITUSSIN DM PO SCH ×4 (09:07→20:19)
[2020-06-05] MEDS: VSL#3 PO SCH (09:08)
[2020-06-05] MEDS: TUSSIONEX PENNKINETIC SUSP PO SCH ×2 (09:08→20:19)
[2020-06-05] MEDS: TAB-A-VITE PO SCH (09:08)
[2020-06-05] MEDS: PULMICORT NEB TX 0.5 MG NEB SCH ×2 (09:50→21:10)
--- NOTE | 2020-06-05 14:17 | PCM.PROG ---
Progress Note - Progress Note for Day of Date of Exam: 06/03/20 - Subjective Subjective: IS BEING TREATED FOR PNEUMONIA DUE TO COVID-19. TODAY, HE IS ALERT AND ORIENTED, LYING IN BED ON MORNING ROUNDS. HE CONTINUES WITH COMPLAINTS OF COUGH, SHORNTESS OF BREATH, AND WEAKNESS. HE REPORTS ONLY SLIGHT IMPROVEMENT IN SYMPTOMS TODAY. ON EXAMINATION, HEART IS REGULAR IN RATE AND RHYTHM. BILATERAL LUNGS ARE NOTED WITH SCATTERED WHEEZING THROUGHOUT. ABDOMEN IS ROUND, SOFT, AND NON-TENDER WITH NORMAL BOWEL SOUNDS NOTED IN ALL QUADRANTS. HIS VITALS THIS MORNING ARE: 98.0-93-20-96%NC-141/91. LABS WERE OBTAINED. ABNORMAL LAB VALUES INCLUDE THE FOLLOWING: RBC 4.63, HCT 40.9, PLT COUNT 146, BUN 20, GLUCOSE 295, FERRITIN 1743, AST 39, CRP 23.30, TOTAL PROTEIN 6.0, ALBUMIN 2.6. BLOOD CULTURES ARE PENDING. SPUTUM CULTURE REPORTS GROWTH OF STENOTROPHOMONAS MALTOPHILIA. A CHEST XRAY WAS OBTAINED AND REVEALED: The trachea is midline. The cardiac silhouette is unremarkable . The lungs demonstrate some mild persistent interstitial infiltrates similar to prior the bony thorax is unremarkable. HE IS CURRENTLY RECEIVING NS AT 75 ML/HR, LEVAQUIN 750MG IV DAILY, REMDESIVIR 100MG IV DAILY, PULMICORT BID, XOPENEX NEBS TID, MUCOMYST NEB TX BID, TUSSIONEX 5ML PO Q12H, ROBITUSSIN 10ML PO QID, SOLU-MEDROL 80MG IV Q8H, LOVENOX 40MG SC DAILY, HUMULIN R SLIDING SCALE, OTBS ACHS, AND HOME MEDICATIONS WERE RESUMED. WE HAVE ORDERED A UNIT OF CONVALESCENT PLASMA AND WILL TRANSFUSE W HEN IT IS AVAILABLE. OTHERWISE, WE WILL CONTINUE WITH CURRENT PLAN OF CARE TODAY. WE PLAN TO FOLLOW UP WITH AM LABS, CHEST XRAY, AND ABG AND CONTINUE TO MONITOR. - Past Medical Family Social History Past Med/Fam/Surg Hx: No changes since H&P Allergies: Allergies No Known Drug Allergies Allergy (Verified 05/26/20 23:37) - Review of Systems ROS: No change since H&P - Vital Signs and I&O's Vital Signs: Temperature 98.1 F Pulse Rate [Apical] 90 Pulse Rate 87 Respiratory Rate 20 Blood Pressure [Left Arm] 150/74 Blood Pressure [Right Arm] 173/84 Blood Pressure 154/76 O2 Sat by Pulse Oximetry 90 Intake and Output: Intake & Output 06/03/20 06/04/20 06/05/20 06/06/20 11:59 11:59 11:59 11:59 Intake Total 3548 / 3548 4762 / 4762 4540 / 4540 Output Total 2425 / 2425 3550 / 3550 3425 / 3425 Balance 1123 / 1123 1212 / 1212 1115 / 1115 - Physical Exam Oriented: Normal Eyes: Normal Ear: Normal Nose: Normal Throat: Normal Respiratory: Generalized, Diminished, Wheezes Cardiovascular: Normal : Normal Auscultation: Bowel Sounds: Normal Palpation: Normal Tenderness: Normal Skin: Normal Musculoskeletal: Normal Psychiatric: Normal Mood Description: Calm Affect: Normal Speech Pattern: Clear, Appropriate - Laboratory and Diagnostics Result Diagrams: 06/05/20 05:09 06/05/20 05:09 Labs: 05/30/20 17:30 Blood Blood Culture - Final 05/30/20 17:30 Blood Blood Culture - Final 05/31/20 21:55 Sputum - Expectorated Sputum Sputum Culture - Final Stenotrophomonas Maltophilia 05/31/20 21:55 Sputum - Expectorated Sputum - Final Laboratory WBC 6.1 X10^3/uL (3.6-10.0) 06/05/20 05:09 RBC 4.76 X10^6/uL (4.7-6.0) 06/05/20 05:09 Hgb 14.0 g/dL (13.5-18.0) 06/05/20 05:09 Hct 41.3 % (42.0-54.0) L 06/05/20 05:09 MCV 86.7 fL (80.0-100.0) 06/05/20 05:09 MCH 29.4 pg (27.0-34.0) 06/05/20 05:09 MCHC 33.9 g/dL (33.0-35.0) 06/05/20 05:09 RDW 13.8 % (11.6-16.5) 06/05/20 05:09 Plt Count 175 X10^3/uL (150.0-450.0) 06/05/20 05:09 Plt Count Comment Adequate (ADEQUATE) 06/04/20 05:28 MPV 8.5 fL (7.4-11.0) 06/05/20 05:09 Neut % (Auto) 89.1 % (42.0-75.0) H 06/05/20 05:09 Lymph % (Auto) 4.7 % (21.0-51.0) L 06/05/20 05:09 [place] % (Auto) 6.1 % (0.0-13.0) 06/05/20 05:09 Eos % (Auto) 0.0 % (0.9-2.9) L 06/05/20 05:09 Baso % (Auto) 0.1 % (0.2-1.0) L 06/05/20 05:09 Neut # (Auto) 5.5 x10^3/uL (2.2-4.8) H 06/05/20 05:09 Lymph # (Auto) 0.3 X10^3/uL (1.3-2.9) L 06/05/20 05:09 [place] # (Auto) 0.4 x10^3/uL (0.3-0.8) 06/05/20 05:09 Eos # (Auto) 0.0 x10^3/uL (0.0-0.2) 06/05/20 05:09 Baso # (Auto) 0.0 X10^3/uL (0.0-0.1) 06/05/20 05:09 Absolute Nucleated RBC 0.1 /100WBC 06/05/20 05:09 Total Counted 100 06/04/20 05:28 Neutrophils % (Manual) 88 % (39-76) H 06/04/20 05:28 Band Neutrophils % 1 % (0-10) 06/04/20 05:28 Lymphocytes % (Manual) 7 % (13-43) L 06/04/20 05:28 Monocytes % (Manual) 4 % (4-9) 06/04/20 05:28 Plt Morphology Comment Normal (NORMAL) 06/04/20 05:28 RBC Morphology Normal (NORMAL) 06/04/20 05:28 Sample Site Rr 06/05/20 05:00 ABG pH 7.470 (7.35-7.45) H 06/05/20 05:00 ABG pCO2 41.0 mmHg (35.0-45.0) 06/05/20 05:00 ABG pO2 53.0 mmHg (80.0-100.0) L 06/05/20 05:00 ABG HCO3 29.8 mmol/L (22-26) H 06/05/20 05:00 ABG O2 Saturation 89.0 % (90-100) L 06/05/20 05:00 ABG Base Excess 5.6 mmol/L (-2.0-2.0) H 06/05/20 05:00 Esvin Test Pos 06/05/20 05:00 A-a Gradient 95.0 mmHg 06/05/20 05:00 FiO2 28 06/05/20 05:00 Blood Gas Comments Karo well sw 06/05/20 05:00 Sodium 136 mmol/L (136-145) 06/05/20 05:09 Corrected Sodium 140 mmol/L (136-145) 06/05/20 05:09 Potassium 4.4 mmol/L (3.5-5.1) 06/05/20 05:09 Chloride 101 mmol/L (98-107) 06/05/20 05:09 Carbon Dioxide 31.2 mmol/L (21-32) 06/05/20 05:09 BUN 16 mg/dL (7-18) 06/05/20 05:09 Creatinine 0.88 mg/dL (0.70-1.30) 06/05/20 05:09 Est GFR (MDRD) Af Amer > 60 (>60) 06/05/20 05:09 Est GFR (MDRD) Non-Af > 60 (>60) 06/05/20 05:09 Glucose 283 mg/dL (65-99) H 06/05/20 05:09 POC Glucose (mg/dL) 317 mg/dL (65-99) H 06/05/20 11:50 Calcium 8.2 mg/dL (8.5-10.1) L 06/05/20 05:09 Corrected Calcium 9.3 mg/dL (8.5-10.1) 06/05/20 05:09 Ferritin 1648 ng/mL (26-388) H 06/05/20 05:09 Total Bilirubin 0.60 mg/dL (0.2-1.0) 06/05/20 05:09 AST 31 Units/L (15-37) 06/05/20 05:09 ALT 63 Units/L (12-78) 06/05/20 05:09 Alkaline Phosphatase 70 Units/L (46-116) 06/05/20 05:09 C-Reactive Protein 8.40 mg/L (0-3.0) H 06/05/20 05:09 Total Protein 5.9 g/dL (6.4-8.2) L 06/05/20 05:09 Albumin 2.6 g/dL (3.4-5.0) L 06/05/20 05:09 Globulin 3.3 g/dL (2.5-4.5) 06/05/20 05:09 Albumin/Globulin Ratio 0.8 Ratio (1.1-2.1) L 06/05/20 05:09 SARS-CoV-2 (PCR) Positive (NEGATIVE) A 05/30/20 15:40 Blood Type O POSITIVE 05/30/20 17:30 Antibody Screen Cancelled 05/30/20 17:30 - Plan (1) Pneumonia Status: Acute Qualifiers: Pneumonia type: due to other aerobic Gram-negative bacteria Laterality: unspecified laterality Lung location: unspecified part of lung Qualified Code(s): J15.6 - Pneumonia due to other Gram-negative bacteria Plan: NS AT 75 ML/HR, LEVAQUIN 750MG IV DAILY, REMDESIVIR 100MG IV DAILY, XOPENEX NEBS TID, PULMICORT BID, MUCOMYST NEB TX BID, TUSSIONEX 5ML PO Q12H, ROBITUSSIN 10ML PO QID, SOLU-MEDROL 80MG IV Q8H, LOVENOX 40MG SC DAILY, HUMULIN R SLIDING SCALE, OTBS ACHS, AND HOME MEDICATIONS WERE RESUMED. (2) COVID-19 Status: Acute (3) Shortness of breath Status: Acute (4) Fever Status: Acute Qualifiers: Fever type: unspecified Qualified Code(s): R50.9 - Fever, unspecified
--- NOTE | 2020-06-05 14:23 | PCM.PROG ---
Progress Note - Progress Note for Day of Date of Exam: 06/04/20 - Subjective Subjective: IS BEING TREATED FOR PNEUMONIA DUE TO COVID-19. TODAY, HE IS ALERT AND ORIENTED, LYING IN BED ON MORNING ROUNDS. HE CONTINUES WITH COMPLAINTS OF COUGH, SHORNTESS OF BREATH, AND WEAKNESS. HE CONTINUES WITH SLIGHT IMPROVEMENT IN SYMPTOMS TODAY. HE DENIES A BOWEL MOVEMENT IN SEVERAL DAYS. ON EXAMINATION, HEART IS REGULAR IN RATE AND RHYTHM. BILATERAL LUNGS ARE NOTED WITH SCATTERED WHEEZING THROUGHOUT. ABDOMEN IS ROUND, SOFT, AND NON-TENDER WITH NORMAL BOWEL SOUNDS NOTED IN ALL QUADRANTS. HIS VITALS THIS MORNING ARE: 97.8-95-20-91%-178/79. LABS WERE OBTAINED. ABNORMAL LAB VALUES INCLUDE THE FOLLOWING: HCT 41.0, GLUCOSEE 277, CALCIUM 8.1, FERRITIN 1728, AST 38, CRP 14.90, TOTAL PROTEIN 6.0, ALBUMIN 2.6. BLOOD CULTURES ARE PENDING. SPUTUM CULTURE REPORTS GROWTH OF STENOTROPHOMONAS MALTOPHILIA. A CHEST XRAY WAS OBTAINED AND REVEALED: Cardiac and mediastinal contours are stable. Stable mild scattered airspace opacities. No pleural effusion or pneumothorax. HE IS CURRENTLY RECEIVING NS AT 75 ML/HR, LEVAQUIN 750MG IV DAILY, REMDESIVIR 100MG IV DAILY, PULMICORT BID, XOPENEX NEBS TID, MUCOMYST NEB TX BID, TUSSIONEX 5ML PO Q12H, ROBITUSSIN 10ML PO QID, SOLU-MEDROL 80MG IV Q8H, LOVENOX 40MG SC DAILY, HUMULIN R SLIDING SCALE, OTBS ACHS, AND HOME MEDICATIONS WERE RESUMED. HE HAS RECEIVED ONE UNIT OF CONVALESCENT PLASMA SINCE ADMISSION. WE WILL CONTINUE WITH CURRENT PLAN OF CARE TODAY AND START COLACE 100MG PO BID AND MILK OF MAGNESIA 10ML PO QID. OTHERWISE, WE PLAN TO FOLLOW UP WITH AM LABS, CHEST XRAY, AND ABG AND CONTINUE TO MONITOR. - Past Medical Family Social History Past Med/Fam/Surg Hx: No changes since H&P Allergies: Allergies No Known Drug Allergies Allergy (Verified 05/26/20 23:37) - Review of Systems ROS: No change since H&P - Vital Signs and I&O's Vital Signs: Temperature 98.1 F Pulse Rate [Apical] 90 Pulse Rate 87 Respiratory Rate 20 Blood Pressure [Left Arm] 150/74 Blood Pressure [Right Arm] 173/84 Blood Pressure 154/76 O2 Sat by Pulse Oximetry 90 Intake and Output: Intake & Output 06/03/20 06/04/20 06/05/20 06/06/20 11:59 11:59 11:59 11:59 Intake Total 3548 / 3548 4762 / 4762 4540 / 4540 Output Total 2425 / 2425 3550 / 3550 3425 / 3425 Balance 1123 / 1123 1212 / 1212 1115 / 1115 - Physical Exam Oriented: Normal Eyes: Normal Ear: Normal Nose: Normal Throat: Normal Respiratory: Generalized, Diminished, Wheezes Cardiovascular: Normal : Normal Auscultation: Bowel Sounds: Normal Palpation: Normal Tenderness: Normal Skin: Normal Musculoskeletal: Normal Psychiatric: Normal Mood Description: Calm Affect: Normal Speech Pattern: Clear, Appropriate - Laboratory and Diagnostics Result Diagrams: 06/05/20 05:09 06/05/20 05:09 Labs: 05/30/20 17:30 Blood Blood Culture - Final 05/30/20 17:30 Blood Blood Culture - Final 05/31/20 21:55 Sputum - Expectorated Sputum Sputum Culture - Final Stenotrophomonas Maltophilia 05/31/20 21:55 Sputum - Expectorated Sputum - Final Laboratory WBC 6.1 X10^3/uL (3.6-10.0) 06/05/20 05:09 RBC 4.76 X10^6/uL (4.7-6.0) 06/05/20 05:09 Hgb 14.0 g/dL (13.5-18.0) 06/05/20 05:09 Hct 41.3 % (42.0-54.0) L 06/05/20 05:09 MCV 86.7 fL (80.0-100.0) 06/05/20 05:09 MCH 29.4 pg (27.0-34.0) 06/05/20 05:09 MCHC 33.9 g/dL (33.0-35.0) 06/05/20 05:09 RDW 13.8 % (11.6-16.5) 06/05/20 05:09 Plt Count 175 X10^3/uL (150.0-450.0) 06/05/20 05:09 Plt Count Comment Adequate (ADEQUATE) 06/04/20 05:28 MPV 8.5 fL (7.4-11.0) 06/05/20 05:09 Neut % (Auto) 89.1 % (42.0-75.0) H 06/05/20 05:09 Lymph % (Auto) 4.7 % (21.0-51.0) L 06/05/20 05:09 [place] % (Auto) 6.1 % (0.0-13.0) 06/05/20 05:09 Eos % (Auto) 0.0 % (0.9-2.9) L 06/05/20 05:09 Baso % (Auto) 0.1 % (0.2-1.0) L 06/05/20 05:09 Neut # (Auto) 5.5 x10^3/uL (2.2-4.8) H 06/05/20 05:09 Lymph # (Auto) 0.3 X10^3/uL (1.3-2.9) L 06/05/20 05:09 [place] # (Auto) 0.4 x10^3/uL (0.3-0.8) 06/05/20 05:09 Eos # (Auto) 0.0 x10^3/uL (0.0-0.2) 06/05/20 05:09 Baso # (Auto) 0.0 X10^3/uL (0.0-0.1) 06/05/20 05:09 Absolute Nucleated RBC 0.1 /100WBC 06/05/20 05:09 Total Counted 100 06/04/20 05:28 Neutrophils % (Manual) 88 % (39-76) H 06/04/20 05:28 Band Neutrophils % 1 % (0-10) 06/04/20 05:28 Lymphocytes % (Manual) 7 % (13-43) L 06/04/20 05:28 Monocytes % (Manual) 4 % (4-9) 06/04/20 05:28 Plt Morphology Comment Normal (NORMAL) 06/04/20 05:28 RBC Morphology Normal (NORMAL) 06/04/20 05:28 Sample Site Rr 06/05/20 05:00 ABG pH 7.470 (7.35-7.45) H 06/05/20 05:00 ABG pCO2 41.0 mmHg (35.0-45.0) 06/05/20 05:00 ABG pO2 53.0 mmHg (80.0-100.0) L 06/05/20 05:00 ABG HCO3 29.8 mmol/L (22-26) H 06/05/20 05:00 ABG O2 Saturation 89.0 % (90-100) L 06/05/20 05:00 ABG Base Excess 5.6 mmol/L (-2.0-2.0) H 06/05/20 05:00 Esvin Test Pos 06/05/20 05:00 A-a Gradient 95.0 mmHg 06/05/20 05:00 FiO2 28 06/05/20 05:00 Blood Gas Comments Karo well sw 06/05/20 05:00 Sodium 136 mmol/L (136-145) 06/05/20 05:09 Corrected Sodium 140 mmol/L (136-145) 06/05/20 05:09 Potassium 4.4 mmol/L (3.5-5.1) 06/05/20 05:09 Chloride 101 mmol/L (98-107) 06/05/20 05:09 Carbon Dioxide 31.2 mmol/L (21-32) 06/05/20 05:09 BUN 16 mg/dL (7-18) 06/05/20 05:09 Creatinine 0.88 mg/dL (0.70-1.30) 06/05/20 05:09 Est GFR (MDRD) Af Amer > 60 (>60) 06/05/20 05:09 Est GFR (MDRD) Non-Af > 60 (>60) 06/05/20 05:09 Glucose 283 mg/dL (65-99) H 06/05/20 05:09 POC Glucose (mg/dL) 317 mg/dL (65-99) H 06/05/20 11:50 Calcium 8.2 mg/dL (8.5-10.1) L 06/05/20 05:09 Corrected Calcium 9.3 mg/dL (8.5-10.1) 06/05/20 05:09 Ferritin 1648 ng/mL (26-388) H 06/05/20 05:09 Total Bilirubin 0.60 mg/dL (0.2-1.0) 06/05/20 05:09 AST 31 Units/L (15-37) 06/05/20 05:09 ALT 63 Units/L (12-78) 06/05/20 05:09 Alkaline Phosphatase 70 Units/L (46-116) 06/05/20 05:09 C-Reactive Protein 8.40 mg/L (0-3.0) H 06/05/20 05:09 Total Protein 5.9 g/dL (6.4-8.2) L 06/05/20 05:09 Albumin 2.6 g/dL (3.4-5.0) L 06/05/20 05:09 Globulin 3.3 g/dL (2.5-4.5) 06/05/20 05:09 Albumin/Globulin Ratio 0.8 Ratio (1.1-2.1) L 06/05/20 05:09 SARS-CoV-2 (PCR) Positive (NEGATIVE) A 05/30/20 15:40 Blood Type O POSITIVE 05/30/20 17:30 Antibody Screen Cancelled 05/30/20 17:30 - Plan (1) Pneumonia Status: Acute Qualifiers: Pneumonia type: due to other aerobic Gram-negative bacteria Laterality: unspecified laterality Lung location: unspecified part of lung Qualified Code(s): J15.6 - Pneumonia due to other Gram-negative bacteria Plan: NS AT 75 ML/HR, LEVAQUIN 750MG IV DAILY, REMDESIVIR 100MG IV DAILY, XOPENEX NEBS TID, PULMICORT BID, MUCOMYST NEB TX BID, TUSSIONEX 5ML PO Q12H, ROBITUSSIN 10ML PO QID, SOLU-MEDROL 80MG IV Q8H, LOVENOX 40MG SC DAILY, HUMULIN R SLIDING SCALE, OTBS ACHS, AND HOME MEDICATIONS WERE RESUMED. (2) COVID-19 Status: Acute (3) Shortness of breath Status: Acute (4) Fever Status: Acute Qualifiers: Fever type: unspecified Qualified Code(s): R50.9 - Fever, unspecified
[2020-06-05] MEDS: SNACK - Diabetic Appropriate PO SCH (20:19)
[2020-06-05] MEDS: REMDESIVIR (INVESTIGATIONAL DRUG GS-5734) 100 MG in NS 250 ML IV 250 ML IV SCH (20:20)
[2020-06-05] MEDS: LEVAQUIN PREMIX IV 750 MG 750 MG/150 ML BAG IV SCH (20:20)
[2020-06-05] MEDS: CRESTOR TAB 10 MG PO SCH (20:21)
[2020-06-06] MEDS: HumuLIN R SUBCUT PRN (05:39)
[2020-06-06 06:06] LABS: ALANINE AMINOTRANSFERASE 57 Units/L (12-78); ALBUMIN 2.5 g/dL (3.4-5.0); ALKALINE PHOSPHATASE 62 Units/L (46-116); ASPARTATE AMINO TRANSFERASE 23 Units/L (15-37); BLOOD UREA NITROGEN 18 mg/dL (7-18); CALCIUM 8.1 mg/dL (8.5-10.1); CARBON DIOXIDE 27.4 mmol/L (21-32); CHLORIDE 100 mmol/L (98-107); COR CA(FOR HYPOALB) 9.3 mg/dL (8.5-10.1); COR NA(FOR HYPERGLY) 139 mmol/L (136-145); CREATININE 0.94 mg/dL (0.70-1.30); SODIUM 135 mmol/L (136-145); TOTAL PROTEIN 5.7 g/dL (6.4-8.2); eGFR NON BLACK RACES > 60 (>60)
--- NOTE | 2020-06-06 06:08 | RAD ---
HISTORYSOBSTUDYCHEST, 1 [id number] trachea is midline. The cardiac silhouette is stable. Patchy bilateral interstitial opacities not appreciably changed.. The bony thorax is unremarkable.IMPRESSIONStable exam.Electronically signed by: Tamica Marley (Jun 06, 2020 06:07:15)
[2020-06-06 06:19] LABS: BASOPHILS % (AUTO) 0.2 % (0.2-1.0); HEMATOCRIT 41.4 % (42.0-54.0); HEMOGLOBIN 14.2 g/dL (13.5-18.0); LYMPHOCYTES # (AUTO) 0.4 X10^3/uL (1.3-2.9); MEAN CORPUSCULAR HEMOGLOBIN 29.7 pg (27.0-34.0); MEAN CORPUSCULAR HGB CONC 34.3 g/dL (33.0-35.0); MEAN CORPUSCULAR VOLUME 86.8 fL (80.0-100.0); MEAN PLATELET VOLUME 8.3 fL (7.4-11.0); MONOCYTES # (AUTO) 0.4 x10^3/uL (0.3-0.8); MONOCYTES % (AUTO) 5.4 % (0.0-13.0); NEUTROPHILS # (AUTO) 6.4 x10^3/uL (2.2-4.8); NEUTROPHILS % (AUTO) 89.4 % (42.0-75.0); PLATELET COUNT 202 X10^3/uL (150.0-450.0); RED BLOOD COUNT 4.77 X10^6/uL (4.7-6.0); RED CELL DISTRIBUTION WIDTH 13.5 % (11.6-16.5); WHITE BLOOD COUNT 7.2 X10^3/uL (3.6-10.0)
[2020-06-06] MEDS: MUCOMYST (RESPIRATORY USE ONLY) NEB SCH (06:55)
[2020-06-06] MEDS: XOPENEX 1.25 MG/3 ML NEBULE NEB SCH (06:55)
[2020-06-06 08:03] LABS: ABG BASE EXCESS 6.3 mmol/L (-2.0-2.0)
[2020-06-06 08:05] LABS: ABG ALLEN TEST POS; ABG HCO3 30.6 mmol/L (22-26)
[2020-06-06] MEDS ORDERED: GLUCOPHAGE ONE (08:26)
[2020-06-06] MEDS: GLUCOPHAGE PO SCH (09:31)
[2020-06-06] MEDS: COLACE CAP 100 MG PO SCH (09:33)
[2020-06-06] MEDS: ASPIRIN PO SCH (09:33)
[2020-06-06] MEDS: LOVAZA PO SCH (09:34)
[2020-06-06] MEDS: LOVENOX INJ 30 MG SYR SC SCH (09:34)
[2020-06-06] MEDS: MIRALAX POWDER (1 DOSE 17 G) PO SCH ×2 (09:35→10:10)
[2020-06-06] MEDS: MILK OF MAGNESIA PO SCH ×3 (09:35→13:26)
[2020-06-06] MEDS: ROBITUSSIN DM PO SCH ×2 (09:36→13:26)
[2020-06-06] MEDS: PROTONIX TAB 40 MG PO SCH (09:36)
[2020-06-06] MEDS: TUSSIONEX PENNKINETIC SUSP PO SCH (09:37)
[2020-06-06] MEDS: TAB-A-VITE PO SCH (09:37)
[2020-06-06] MEDS: VSL#3 PO SCH (09:38)
--- NOTE | 2020-06-06 09:54 | PCM.PROG ---
Progress Note - Progress Note for Day of Date of Exam: 06/05/20 - Subjective Subjective: IS BEING TREATED FOR PNEUMONIA DUE TO COVID-19. TODAY, HE IS ALERT AND ORIENTED, LYING IN BED ON MORNING ROUNDS. HE CONTINUES WITH COMPLAINTS OF COUGH, SHORNTESS OF BREATH, AND WEAKNESS. HE CONTINUES TO REPORT SLIGHT IMPROVEMENT IN SYMPTOMS TODAY. ON EXAMINATION, HEART IS REGULAR IN RATE AND RHYTHM. BILATERAL LUNGS ARE NOTED WITH SCATTERED WHEEZING THROUGHOUT. ABDOMEN IS ROUND, SOFT, AND NON-TENDER WITH NORMAL BOWEL SOUNDS NOTED IN ALL QUADRANTS. HIS VITALS THIS MORNING ARE: 97.6-95-20-94%NC-151/66. LABS WERE OBTAINED. ABNORMAL LAB VALUES INCLUDE THE FOLLOWING: HCT 41.3, GLUCOSE 283, CALCIUM 8.2, FERRITIN 1648, CRP 8.40, TOTAL PROTEIN 5.9, ALBUMIN 2.6. ABG WAS OBTAINED AND REVEALED: PH 7.470, PC02 41, P02 53, HC03 29.8, 02 SATURATION 89, FI02 28. SPUTUM CULTURE REPORTS GROWTH OF STENOTROPHOMONAS MALTOPHILIA. A CHEST XRAY WAS OBTAINED AND REVEALED: Cardiac and mediastinal contours appear stable. Stable mild scattered interstitial opacities. No pleural effusion or pneu mothorax. HE IS CURRENTLY RECEIVING NS AT 75 ML/HR, LEVAQUIN 750MG IV DAILY, REMDESIVIR 100MG IV DAILY, PULMICORT BID, XOPENEX NEBS TID, MUCOMYST NEB TX BID, TUSSIONEX 5ML PO Q12H, ROBITUSSIN 10ML PO QID, SOLU-MEDROL 80MG IV Q8H, LOVENOX 40MG SC DAILY, HUMULIN R SLIDING SCALE, OTBS ACHS, COLACE 100MG PO BID, MILK OF MAGNESIA 10ML PO QID, AND HOME MEDICATIONS WERE RESUMED. HE HAS RECEIVED ONE UNI T OF CONVALESCENT PLASMA SINCE ADMISSION. WE WILL CONTINUE WITH CURRENT PLAN OF CARE TODAY AND START OTHERWISE, WE PLAN TO FOLLOW UP WITH AM LABS, CHEST XRAY, AND ABG AND CONTINUE TO MONITOR. - Past Medical Family Social History Past Med/Fam/Surg Hx: No changes since H&P Allergies: Allergies No Known Drug Allergies Allergy (Verified 05/26/20 23:37) - Review of Systems ROS: No change since H&P - Vital Signs and I&O's Vital Signs: Temperature 97.9 F Pulse Rate [Apical] 100 Pulse Rate 90 Respiratory Rate 22 Blood Pressure [Left Arm] 177/81 Blood Pressure [Right Arm] 173/84 Blood Pressure 154/76 O2 Sat by Pulse Oximetry 92 Intake and Output: Intake & Output 06/03/20 06/04/20 06/05/20 06/06/20 11:59 11:59 11:59 11:59 Intake Total 3548 / 3548 4762 / 4762 4540 / 4540 3050 / 3050 Output Total 2425 / 2425 3550 / 3550 3425 / 3425 2800 / 2800 Balance 1123 / 1123 1212 / 1212 1115 / 1115 250 / 250 - Physical Exam Oriented: Normal Eyes: Normal Ear: Normal Nose: Normal Throat: Normal Respiratory: Generalized, Diminished, Wheezes Cardiovascular: Normal : Normal Auscultation: Bowel Sounds: Normal Tenderness: Normal Skin: Normal Musculoskeletal: Normal Psychiatric: Normal Mood Description: Calm Affect: Normal Speech Pattern: Clear, Appropriate - Laboratory and Diagnostics Result Diagrams: 06/06/20 05:33 06/06/20 05:33 Labs: 05/30/20 17:30 Blood Blood Culture - Final 05/30/20 17:30 Blood Blood Culture - Final 05/31/20 21:55 Sputum - Expectorated Sputum Sputum Culture - Final Stenotrophomonas Maltophilia 05/31/20 21:55 Sputum - Expectorated Sputum - Final Laboratory WBC 7.2 X10^3/uL (3.6-10.0) 06/06/20 05:33 RBC 4.77 X10^6/uL (4.7-6.0) 06/06/20 05:33 Hgb 14.2 g/dL (13.5-18.0) 06/06/20 05:33 Hct 41.4 % (42.0-54.0) L 06/06/20 05:33 MCV 86.8 fL (80.0-100.0) 06/06/20 05:33 MCH 29.7 pg (27.0-34.0) 06/06/20 05:33 MCHC 34.3 g/dL (33.0-35.0) 06/06/20 05:33 RDW 13.5 % (11.6-16.5) 06/06/20 05:33 Plt Count 202 X10^3/uL (150.0-450.0) 06/06/20 05:33 Plt Count Comment Adequate (ADEQUATE) 06/04/20 05:28 MPV 8.3 fL (7.4-11.0) 06/06/20 05:33 Neut % (Auto) 89.4 % (42.0-75.0) H 06/06/20 05:33 Lymph % (Auto) 5.0 % (21.0-51.0) L 06/06/20 05:33 Avery % (Auto) 5.4 % (0.0-13.0) 06/06/20 05:33 Eos % (Auto) 0.0 % (0.9-2.9) L 06/06/20 05:33 Baso % (Auto) 0.2 % (0.2-1.0) 06/06/20 05:33 Neut # (Auto) 6.4 x10^3/uL (2.2-4.8) H 06/06/20 05:33 Lymph # (Auto) 0.4 X10^3/uL (1.3-2.9) L 06/06/20 05:33 Avery # (Auto) 0.4 x10^3/uL (0.3-0.8) 06/06/20 05:33 Eos # (Auto) 0.0 x10^3/uL (0.0-0.2) 06/06/20 05:33 Baso # (Auto) 0.0 X10^3/uL (0.0-0.1) 06/06/20 05:33 Absolute Nucleated RBC 0.2 /100WBC 06/06/20 05:33 Total Counted 100 06/04/20 05:28 Neutrophils % (Manual) 88 % (39-76) H 06/04/20 05:28 Band Neutrophils % 1 % (0-10) 06/04/20 05:28 Lymphocytes % (Manual) 7 % (13-43) L 06/04/20 05:28 Monocytes % (Manual) 4 % (4-9) 06/04/20 05:28 Plt Morphology Comment Normal (NORMAL) 06/04/20 05:28 RBC Morphology Normal (NORMAL) 06/04/20 05:28 Sample Site Rrad 06/06/20 05:24 ABG pH 7.470 (7.35-7.45) H 06/06/20 05:24 ABG pCO2 42.0 mmHg (35.0-45.0) 06/06/20 05:24 ABG pO2 55.0 mmHg (80.0-100.0) L 06/06/20 05:24 ABG HCO3 30.6 mmol/L (22-26) H* 06/06/20 05:24 ABG O2 Saturation 90.0 % (90-100) 06/06/20 05:24 ABG Base Excess 6.3 mmol/L (-2.0-2.0) H 06/06/20 05:24 Esvin Test Pos 06/06/20 05:24 A-a Gradient 92.0 mmHg 06/06/20 05:24 FiO2 28.0 06/06/20 05:24 Blood Gas Comments Karo well 06/06/20 05:24 Sodium 135 mmol/L (136-145) L 06/06/20 05:33 Corrected Sodium 139 mmol/L (136-145) 06/06/20 05:33 Potassium 4.2 mmol/L (3.5-5.1) 06/06/20 05:33 Chloride 100 mmol/L (98-107) 06/06/20 05:33 Carbon Dioxide 27.4 mmol/L (21-32) 06/06/20 05:33 BUN 18 mg/dL (7-18) 06/06/20 05:33 Creatinine 0.94 mg/dL (0.70-1.30) 06/06/20 05:33 Est GFR (MDRD) Af Amer > 60 (>60) 06/06/20 05:33 Est GFR (MDRD) Non-Af > 60 (>60) 06/06/20 05:33 Glucose 276 mg/dL (65-99) H 06/06/20 05:33 POC Glucose (mg/dL) 269 mg/dL (65-99) H 06/06/20 05:31 Calcium 8.1 mg/dL (8.5-10.1) L 06/06/20 05:33 Corrected Calcium 9.3 mg/dL (8.5-10.1) 06/06/20 05:33 Ferritin 1584 ng/mL (26-388) H 06/06/20 05:33 Total Bilirubin 0.70 mg/dL (0.2-1.0) 06/06/20 05:33 AST 23 Units/L (15-37) 06/06/20 05:33 ALT 57 Units/L (12-78) 06/06/20 05:33 Alkaline Phosphatase 62 Units/L (46-116) 06/06/20 05:33 C-Reactive Protein 4.50 mg/L (0-3.0) H 06/06/20 05:33 Total Protein 5.7 g/dL (6.4-8.2) L 06/06/20 05:33 Albumin 2.5 g/dL (3.4-5.0) L 06/06/20 05:33 Globulin 3.2 g/dL (2.5-4.5) 06/06/20 05:33 Albumin/Globulin Ratio 0.8 Ratio (1.1-2.1) L 06/06/20 05:33 SARS-CoV-2 (PCR) Positive (NEGATIVE) A 05/30/20 15:40 Blood Type O POSITIVE 05/30/20 17:30 Antibody Screen Cancelled 05/30/20 17:30 - Plan (1) Pneumonia Status: Acute Qualifiers: Pneumonia type: due to other aerobic Gram-negative bacteria Laterality: unspecified laterality Lung location: unspecified part of lung Qualified Code(s): J15.6 - Pneumonia due to other Gram-negative bacteria Plan: NS AT 75 ML/HR, LEVAQUIN 750MG IV DAILY, REMDESIVIR 100MG IV DAILY, XOPENEX NEBS TID, PULMICORT BID, MUCOMYST NEB TX BID, TUSSIONEX 5ML PO Q12H, ROBITUSSIN 10ML PO QID, SOLU-MEDROL 80MG IV Q8H, LOVENOX 40MG SC DAILY, HUMULIN R SLIDING SCALE, OTBS ACHS, AND HOME MEDICATIONS WERE RESUMED. (2) COVID-19 Status: Acute (3) Shortness of breath Status: Acute (4) Fever Status: Acute Qualifiers: Fever type: unspecified Qualified Code(s): R50.9 - Fever, unspecified
[2020-06-06] MEDS: PULMICORT NEB TX 0.5 MG NEB SCH (10:05)
[2020-06-06 13:05] VITALS: BP 171/80
== END 2020-06-06 13:25 | disposition home or self-care (01) | DRG 177 ==
LOC: INTOOBSV 15:23 → OBS 15:23 → ICU 17:52 → MED/SURG 06-01 09:02 → OBS 06-01 09:03 → ICU 06-01 09:04 → MED/SURG 06-02 15:15 → OBS 06-02 15:16 → UNDODISIN 06-06 13:25 → OBS 06-18 14:28
PROVIDERS: ADMIT Internal Medicine; ATTEND Internal Medicine
DX: R50.9 Fever, unspecified; R06.02 Shortness of breath; J12.9 Viral pneumonia, unspecified; E11.8 Type 2 diabetes mellitus with unspecified complications; U07.1 COVID-19; J15.8 Pneumonia due to other specified bacteria